=== PATIENT | female | born 1930 | race Caucasian/White ===

== ENCOUNTER 2016-03-28 12:49 | Outpatient (CLI) | payer MEDICARE, BC | END 2016-03-28 12:50 | disposition home or self-care (01) | DX: N63 Unspecified lump in breast (principal); Z85.3 Personal history of malignant neoplasm of breast; Z90.11 Acquired absence of right breast and nipple ==

== ENCOUNTER 2016-04-27 | Outpatient (CLI) | payer MEDICARE, BC | END 2016-04-27 03:27 | disposition critical access hospital (66) | CPT/HCPCS: A0425; A0427 ==

== ENCOUNTER 2016-04-27 04:23 | Emergency (ER) | payer MEDICARE, BC ==
[2016-04-27] MEDS ORDERED: SODIUM CHLORIDE 0.9% 1,000 ML IV ONE (04:30)
[2016-04-27] MEDS ORDERED: MECLIZINE 12.5 MG TABLET PO STA (04:30)
[2016-04-27] MEDS ORDERED: MECLIZINE 12.5 MG TABLET PO ONE (04:33)
[2016-04-27] MEDS ORDERED: ONDANSETRON ODT 4 MG Prepack 2 TL PRN (06:05)
[2016-04-27] MEDS ORDERED: ONDANSETRON ODT 4 MG Prepack 2 TL ONE (06:11)
== END 2016-04-27 06:39 | disposition home or self-care (01) ==
DX: R42 Dizziness and giddiness (principal); R11.2 Nausea with vomiting, unspecified; R19.7 Diarrhea, unspecified; S50.311A Abrasion of right elbow, initial encounter; X58.XXXA Exposure to other specified factors, initial encounter; J44.9 Chronic obstructive pulmonary disease, unspecified; Z85.828 Personal history of other malignant neoplasm of skin

== ENCOUNTER 2017-02-19 14:34 | Outpatient (CLI) | payer MEDICARE, BC | END 2017-02-19 14:35 | disposition critical access hospital (66) | LOC: EMS 14:34 | PROVIDERS: ATTEND Surgery | DX: R53.1 Weakness (principal) | CPT/HCPCS: A0425; A0429 ==

== ENCOUNTER 2017-02-19 15:32 | Emergency (ER) | payer MEDICARE, BC ==
[2017-02-19] MEDS ORDERED: MECLIZINE 12.5 MG TABLET PO STA (15:52)
[2017-02-19] MEDS ORDERED: SODIUM CHLORIDE 0.9% 1,000 ML IV ONE (15:52)
[2017-02-19] MEDS ORDERED: ONDANSETRON 4 MG/2 ML VIAL IVP STA (15:52)
[2017-02-19] MEDS ORDERED: diazePAM INJ 5 MG/ML SYRINGE IVP STA (15:52)
[2017-02-19 16:36] LABS: BASOPHILS # (AUTO) 0.1 10^3/uL (0.0-0.1); BASOPHILS % (AUTO) 1.1 %; EOSINOPHILS % (AUTO) 0.1 %; HCT - HEMATOCRIT 46.7 % (37.0-47.0); HGB - HEMOGLOBIN 15.4 g/dL (12.0-16.0); LYMPHOCYTES # (AUTO) 1.1 10^3/uL (1.5-3.5); LYMPHOCYTES % (AUTO) 15.1 %; MEAN CORPUSCULAR HEMOGLOBIN 32.5 pg (27.0-31.0); MEAN CORPUSCULAR VOLUME 98.5 fL (81.0-99.0); MONOCYTES # (AUTO) 0.2 10^3/uL (0.0-1.0); MONOCYTES % (AUTO) 2.2 %; NEUTROPHILS # (AUTO) 5.9 10^3/uL (1.5-6.6); NEUTROPHILS % (AUTO) 81.5 %; RED BLOOD COUNT 4.75 10^6/uL (4.20-5.40); RED CELL DISTRIBUTION WIDTH 13.8 % (12.0-15.0); UNCORRECTED WHITE BLOOD COUNT 7.3 x10^3/uL; WHITE BLOOD COUNT 7.3 x10^3/uL (4.8-10.8)
[2017-02-19 16:39] LABS: ALBUMIN/GLOBULIN RATIO 1.9 (1.0-2.2); BILIRUBIN,TOTAL 0.9 mg/dL (0.2-1.0); CALCIUM 9.1 mg/dL (8.5-10.3); CREATININE 0.4 mg/dL (0.4-1.0); POTASSIUM 3.4 mmol/L (3.5-5.0); TOTAL PROTEIN 6.4 g/dL (6.7-8.2)
--- NOTE | 2017-02-19 17:06 | ED Physician Documentation ---
History of Present Illness - Stated complaint Stated Complaint: SYNCOPE - Chief complaint Chief Complaint: General - History obtained from History obtained from: Patient, Family, EMS - Additonal information Additional information: Patient is an 86 year old female with a history of vertigo who is presenting to the emergency department for vertigo, nausea and vomiting. patient states that about 10 am today she was reading in bed and when she moved the room started spinning. patient was able to only sit in certain positions, other positions made her nauseated with movement. Review of Systems Constitutional: denies: Fever, Chills Eyes: denies: Photophobia Nose: reports: Reviewed and negative Throat: reports: Reviewed and negative Cardiac: denies: Chest pain / pressure, Palpitations Respiratory: denies: Dyspnea, Cough, Wheezing GI: reports: Nausea, Vomiting, Diarrhea : denies: Dysuria, Frequency Neurologic: reports: Other (vertigo). 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 Musculoskeletal: Osteoarthritis Derm: Other - Past Surgical History Past Surgical History: Yes General: Appendectomy, Splenectomy, Colonoscopy /VENTILATION EQUIPMENT TENDER: Mastectomy Derm: Skin cancer surgery - Present Medications Home Medications: Ambulatory Orders Medication Instructions Recorded Confirmed Ascorbic Acid [C-1000] 1,000 mg PO DAILY 02/26/15 02/26/15 Beta-Carotene(A)-Vits C and E 02/26/15 02/26/15 [E-400 C-500 & Beta Carotene] Calcium Carb/Magnesium Ox,Carb 02/26/15 02/26/15 [Fred-Mag Tablet Chewable] Glucosamine/Methylsulfonylmeth 120 gm TP DAILY 02/26/15 02/19/17 [MSM with Glucosamine Creme] Lysine HCl [l-Lysine] 1,000 mg PO DAILY 02/26/15 02/19/17 [place]-3 Fatty Acids [Fish Oil] 300 mg PO DAILY 02/26/15 02/19/17 Potassium 02/26/15 02/26/15 Ubidecarenone [Co Q-10] 50 mg PO DAILY 02/26/15 02/19/17 Vitamin B Complex [B-50 Complex] 1 each PO DAILY 02/26/15 02/19/17 Meclizine HCl 25 mg PO Q6HR #15 tab.chew 02/19/17 Ondansetron Odt [Zofran Odt] 4 mg TL Q6H PRN #20 tablet 02/19/17 - Allergies Allergies/Adverse Reactions: Allergies Allergy/AdvReac Type Severity Reaction Status Date / Time acetaminophen Allergy Unknown Verified 02/19/17 16:33 [From Darvocet-N] cephalexin monohydrate * Allergy Unknown Verified 02/19/17 16:33 [From Keflex] diazepam Allergy Unknown Verified 02/19/17 16:33 erythromycin base Allergy Unknown Verified 02/19/17 16:33 Penicillins Allergy Unknown Verified 02/19/17 16:33 petrolatum,white Allergy Unknown Verified 02/19/17 16:33 [From Petroleum Jelly] prednisone Allergy Unknown Verified 02/19/17 16:33 propoxyphene napsylate * Allergy Unknown Verified 02/19/17 16:33 [From Darvocet-N] Sulfa (Sulfonamide Allergy Unknown Verified 02/19/17 16:33 Antibiotics) fluoroquinolones Allergy Unknown Uncoded 04/27/16 04:29 metals Allergy Unknown Uncoded 04/27/16 04:29 vicryl sutures Allergy Unknown Uncoded 04/27/16 04:29 - Social History Does the pt smoke?: No Smoking Status: Never smoker Does the pt drink ETOH?: No Does the pt have substance abuse?: No - Immunizations Immunizations are current?: Yes - POLST Patient has POLST: No PD ED PE NORMAL - Vitals Vital signs reviewed: Yes - General General: Alert and oriented X 3, No acute distress - HEENT HEENT: Atraumatic, PERRL, Moist mucous membranes - Neck Neck: Supple, no meningeal sign - Cardiac Cardiac: RRR, No murmur - Respiratory Respiratory: No respiratory distress, Clear bilaterally - Abdomen Abdomen: Soft, Non tender, Non distended - Derm Derm: Normal color, Warm and dry, No rash - Extremities Extremities: No deformity, Normal ROM s pain, No edema - Neuro Neuro: Alert and oriented X 3, No motor deficit, No sensory deficit, Normal speech PD ED PE EXPANDED - HEENT HEENT: Other (mild nystagmus with movement) Results - Vitals Vitals: Vital Signs - 24 hr 02/19/17 15:37 Temperature 36.5 C Heart Rate 65 Respiratory 18 Rate Blood Pressure 146/79 H O2 Saturation 98 Oxygen O2 Source Room air - EKG (time done) 1624 Rate: Rate (enter#) (63) Rhythm: NSR [place]: Normal Intervals: Normal IA QRS: Normal Ischemia: Normal ST segments Compare to prior EKG: Old EKG unavailable - Labs Labs: Laboratory Tests 02/19/17 02/19/17 02/19/17 14:16 14:16 14:16 WBC 7.3 RBC 4.75 Hgb 15.4 Hct 46.7 MCV 98.5 MCH 32.5 H MCHC 33.0 RDW 13.8 Plt Count 248 MPV 8.0 Neut # 5.9 Lymph # 1.1 L [place] # 0.2 Eos # 0.0 Baso # 0.1 Absolute Nucleated RBC 0.00 Nucleated RBC % 0.0 Sodium 138 Potassium 3.4 L Chloride 103 Carbon Dioxide 24 Anion Gap 11.0 BUN 11 Creatinine 0.4 Estimated GFR (MDRD) 152 Glucose 123 H Calcium 9.1 Total Bilirubin 0.9 AST 25 ALT 15 Alkaline Phosphatase 67 Troponin I < 0.04 Total Protein 6.4 L Albumin 4.2 Globulin 2.2 Albumin/Globulin Ratio 1.9 Lipase 70 H PD MEDICAL DECISION MAKING - ED course Complexity details: reviewed old records, reviewed results, re-evaluated patient , considered differential, d/w patient, d/w family ED course: Patient was seen and examined at bedside. IV access was gained and labs were drawn. Patient was treated with fluids, zofran and meclizine. after an episode of vomiting patient stated that she had diaphragm pain and was ekg was performed. Patient's vertigo was made worse with movement, and was better when she remained still. Upon re-evaluation patient stated that she was feeling much better and symptoms had resolved. Patient was given detailed discharge and return instructions and was stable for discharge with outpatient follow up. Departure - Departure Disposition: 01 Home, Self Care Clinical Impression: Benign positional vertigo Condition: Good Instructions: ED BPV Vertigo Follow-Up: Hallie Nunez ARNP [Primary Care Provider] - Within 3 Days Prescriptions: Meclizine HCl 25 mg PO Q6HR #15 tab.chew Ondansetron Odt [Zofran Odt] 4 mg TL Q6H PRN #20 tablet PRN Reason: Nausea / Vomiting Comments: Your symptoms today are being caused by benign positional vertigo. You should make sure that you stay well hydrated and try not to move too quickly. You should take the meclizine as needed for the vertigo and can take zofran as needed for nausea. You should follow up with your doctor for further care. You may return to the emergency department at any time for new, worsening or uncontrollable symptoms.
[2017-02-19 18:49] VITALS: BP 136/78
== END 2017-02-19 17:30 | disposition home or self-care (01) ==
LOC: EDUNIT# → ED 15:32
DX: H81.10 Benign paroxysmal vertigo, unspecified ear (principal); J44.9 Chronic obstructive pulmonary disease, unspecified
CPT/HCPCS: 36415; 80053; 83690; 84484; 85025; 93005; 96361; 96374; 99283; 99284; A9270

== ENCOUNTER 2017-07-10 17:39 | Emergency (ER) | payer MEDICARE, BC ==
--- NOTE | 2017-07-10 18:00 | ED Physician Documentation ---
History of Present Illness - Stated complaint Stated Complaint: GLF - Chief complaint Chief Complaint: General - History obtained from History obtained from: Patient, Family - History of Present Illness Timing: Other (She tripped and fell down some stairs and was laying in an awkward position for about an hour. The major sites of pain of the left wrist and left posterior ribs. No head or neck injury. She is not anticoagulated. 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 Musculoskeletal: Osteoarthritis Derm: Other - Past Surgical History Past Surgical History: Yes General: Appendectomy, Splenectomy, Colonoscopy /MORALE OFFICER: Mastectomy Derm: Skin cancer surgery - Present Medications Home Medications: Ambulatory Orders Medication Instructions Recorded Confirmed Ascorbic Acid [C-1000] 1,000 mg PO DAILY 02/26/15 02/26/15 Beta-Carotene(A)-Vits C and E 02/26/15 02/26/15 [E-400 C-500 & Beta Carotene] Calcium Carb/Magnesium Ox,Carb 02/26/15 02/26/15 [Fred-Mag Tablet Chewable] Glucosamine/Methylsulfonylmeth 120 gm TP DAILY 02/26/15 02/19/17 [MSM with Glucosamine Creme] Lysine HCl [l-Lysine] 1,000 mg PO DAILY 02/26/15 02/19/17 [place]-3 Fatty Acids [Fish Oil] 300 mg PO DAILY 02/26/15 02/19/17 Potassium 02/26/15 02/26/15 Ubidecarenone [Co Q-10] 50 mg PO DAILY 02/26/15 02/19/17 Vitamin B Complex [B-50 Complex] 1 each PO DAILY 02/26/15 02/19/17 Meclizine HCl 25 mg PO Q6HR #15 tab.chew 02/19/17 Ondansetron Odt [Zofran Odt] 4 mg TL Q6H PRN #20 tablet 02/19/17 oxyCODONE [Roxicodone] 0.5 tab PO Q6H PRN #15 tablet 07/10/17 - Allergies Allergies/Adverse Reactions: Allergies Allergy/AdvReac Type Severity Reaction Status Date / Time acetaminophen Allergy Unknown Verified 07/10/17 17:55 [From Darvocet-N] cephalexin monohydrate * Allergy Unknown Verified 07/10/17 17:55 [From Keflex] diazepam Allergy Unknown Verified 07/10/17 17:55 erythromycin base Allergy Unknown Verified 07/10/17 17:55 Penicillins Allergy Unknown Verified 07/10/17 17:55 petrolatum,white Allergy Unknown Verified 07/10/17 17:55 [From Petroleum Jelly] prednisone Allergy Unknown Verified 07/10/17 17:55 propoxyphene napsylate * Allergy Unknown Verified 07/10/17 17:55 [From Darvocet-N] Sulfa (Sulfonamide Allergy Unknown Verified 07/10/17 17:55 Antibiotics) fluoroquinolones Allergy Unknown Uncoded 04/27/16 04:29 metals Allergy Unknown Uncoded 04/27/16 04:29 vicryl sutures Allergy Unknown Uncoded 04/27/16 04:29 - Social History Does the pt smoke?: No Smoking Status: Never smoker Does the pt drink ETOH?: No Does the pt have substance abuse?: No - Immunizations Immunizations are current?: Yes - POLST Patient has POLST: No PD ED PE NORMAL - Vitals Vital signs reviewed: Yes - General General: Alert and oriented X 3, No acute distress - HEENT HEENT: PERRL, EOMI - Neck Neck: Supple, no meningeal sign, No bony TTP - Abdomen Abdomen: Non tender - Back Back: No spinal TTP, Other (She is tenderness to the low ribs in the posterior axillary line on the left side without deformity. No flank tenderness.) - Extremities Extremities: Other (She is quite tender to the left distal radius but not the snuffbox. Limited range of motion in flexion and extension due to pain but normal neurovascular status in the hand there is an abrasion over the left elbow but no underlying tenderness or limited range of motion. She is up-to- date on tetanus.) - Neuro Neuro: Alert and oriented X 3, Normal speech Eye Opening: Spontaneous Motor: Obeys Commands Verbal: Oriented GCS Score: 15 - Psych Psych: Normal mood, Normal affect Results - Vitals Vitals: Vital Signs - 24 hr 07/10/17 17:43 Temperature 36.6 C Heart Rate 67 Respiratory 20 Rate Blood Pressure 145/73 H O2 Saturation 92 Oxygen O2 Source Room air - Rads (name of study) L ribs Radiology: EMP read contemporaneously (There is a minimally displaced left 10th rib fracture without pneumothorax) L wrist Radiology: EMP read contemporaneously (Minimally displaced comminuted intra- articular fracture of the distal radius extending to the radiocarpal joint with a small triquetral avulsion fracture.) Procedures - Splint (location) L wrist Splint applied by: Tech Type of splint: Fiberglass, Short arm, Volar cock up Other: Patient tolerated well, No complications, Neurovascular intact Departure - Departure Disposition: 01 Home, Self Care Clinical Impression: Fracture of left distal radius Qualifiers: Encounter type: initial encounter Fracture type: closed Fracture morphology: other intra-articular Qualified Code(s): S52.572A - Other intraarticular fracture of lower end of left radius, initial encounter for closed fracture Fracture of triquetrum of left wrist Qualifiers: Encounter type: initial encounter Fracture type: closed Fracture alignment: nondisplaced Qualified Code(s): S62.115A - Nondisplaced fracture of triquetrum [ cuneiform] bone, left wrist, initial encounter for closed fracture Left rib fracture Qualifiers: Encounter type: initial encounter Rib fracture type: single rib Fracture type: closed Qualified Code(s): S22.32XA - Fracture of one rib, left side, initial encounter for closed fracture Condition: Good Record reviewed to determine appropriate education?: Yes Instructions: ED Fx Rib, ED Fx Forearm Radius Ulna No Redu Requ Follow-Up: [facility] [Provider Group] - Within 1 week Prescriptions: oxyCODONE [Roxicodone] 0.5 tab PO Q6H PRN #15 tablet PRN Reason: Pain Comments: Follow-up with the orthopedic surgeon within the week, call tomorrow for appointment. Return if worse. Keep the splint on and dry until you follow-up. Practice deep breathing. Do not drink or drive while taking narcotic pain medication. Note that many narcotic pain relievers also contain Tylenol/acetaminophen. Please ensure that your total dose of acetaminophen from all sources does not exceed 3 g (3000 mg) per day. You may get constipated while on this medication. Take a stool softener such as Colace twice a day while you are on it. Also add an [id number] laxative such as senna or MiraLAX on any day that you do not have a bowel movement. If you received a narcotic pain medication or sedative while in the emergency department, do not drive for the next 24 hours.
[2017-07-10] MEDS ORDERED: BACITRACIN OINT TOP ONE (18:14)
--- NOTE | 2017-07-10 19:05 | XRAY Report ---
EXAM: LEFT WRIST RADIOGRAPHY EXAM DATE: 07/10/2017 06:01 PM. CLINICAL HISTORY: Fall, wrist and rib injury. COMPARISON: None. TECHNIQUE: 3 views. FINDINGS: Bones: There is a comminuted minimally displaced fracture of the distal radius with intra-articular e xtension to the radial carpal joint. Greatest displacement is of the posterior lip of the radius on l ateral view, less than one cortical width. There is also a small posterior triquetral avulsion fracture demonstrated on the lateral view. Joints: No malalignment. Subchondral cystic changes and sclerosis present within the ulnar aspect of the lunate, likely degenerative. At least mild degenerative change present at the first interphalange al joint. Soft Tissues: Soft tissue swelling present about the wrist. IMPRESSION: 1. Minimally displaced comminuted intra-articular fracture of the distal radius extending to the radi ocarpal joint. No dislocation/subluxation. 2. Small triquetral avulsion fracture. [facility] Referring Provider Line: [phone] SITE ID: [id number]
--- NOTE | 2017-07-10 19:15 | XRAY Report ---
EXAM: LEFT RIB RADIOGRAPHY EXAM DATE: 07/10/2017 06:01 PM. CLINICAL HISTORY: Fall, wrist and rib injury. COMPARISON: Chest radiograph 02/27/2016. TECHNIQUE: 1 view of the chest and 2 views of the ribs. FINDINGS: Bones: There is a minimally displaced fracture of the posterolateral left 10th rib. Lungs: There is mild diffuse interstitial prominence, similar to prior exam. No focal consolidation. No significant pleural effusion. No pneumothorax. Mediastinum: Heart and mediastinal contours are unremarkable. Other: None. IMPRESSION: Minimally displaced left 10th rib fracture without pneumothorax. [facility] Referring Provider Line: [phone] SITE ID: [id number]
[2017-07-10 19:43] VITALS: BP 158/64
== END 2017-07-10 19:38 | disposition home or self-care (01) ==
LOC: ED 17:39
DX: S52.572A Other intraarticular fracture of lower end of left radius, initial encounter for closed fracture (principal); S62.115A Nondisplaced fracture of triquetrum [cuneiform] bone, left wrist, initial encounter for closed fracture; S22.32XA Fracture of one rib, left side, initial encounter for closed fracture; W10.9XXA Fall (on) (from) unspecified stairs and steps, initial encounter; J44.9 Chronic obstructive pulmonary disease, unspecified
CPT/HCPCS: 29125; 71101; 73110; 99283; 99284; A9270

== ENCOUNTER 2019-05-14 16:08 | Outpatient (CLI) | payer MEDICARE, BC | END 2019-05-14 23:59 | disposition EMS.NT | LOC: EMS 16:08 | PROVIDERS: ATTEND Surgery | DX: R41.0 Disorientation, unspecified (principal) ==

== ENCOUNTER 2019-12-26 12:47 | Outpatient (CLI) | payer MEDICARE, BC ==
--- NOTE | 2019-12-29 12:14 | MRI Report ---
PROCEDURE: Brain W/O INDICATIONS: IMPAIRED COGNITION TECHNIQUE: Noncontrast axial T1 spin echo, axial T2 fast spin echo, sagittal and axial FLAIR, coronal T2 fast sp in echo, axial gradient echo, axial diffusion and ADC through the brain. COMPARISON: None. FINDINGS: Image quality: Excellent. CSF Spaces: Basal cisterns are patent. No extra-axial fluid collections. Ventricles are normal in size and shape. Brain: No intracranial masses or hemorrhage. Power/white matter interface is normal. Prominent T2 hy perintensities are present within the remi. Diffusion-weighted images demonstrate no acute ischemic i nsult. No chronic ischemic insults. Normal intravascular flow voids are present. Skull and face: Calvarium has normal marrow signal. Orbits appear normal. Sinuses: Sinuses and mastoids are clear. IMPRESSION: 1. No acute intracranial process. 2. Moderate to severe atrophy and chronic microvascular ischemic changes. In addition, prominent hyp erintensities are present within the remi likely related to microvascular ischemia. Reviewed by: Jannette Bateman MD on 12/28/2019 8:07 AM [facility] Approved by: Jannette Bateman MD on 12/28/2019 8:07 AM PST Station ID: [id number]
== END 2019-12-26 12:48 | disposition home or self-care (01) ==
LOC: DI 12:47
PROVIDERS: ATTEND Registered Nurse
DX: R41.89 Other symptoms and signs involving cognitive functions and awareness (principal); G31.9 Degenerative disease of nervous system, unspecified
CPT/HCPCS: 70551

== ENCOUNTER 2020-03-04 03:40 | Outpatient (CLI) | payer MEDICARE, BC ==
--- OUTSIDE RECORDS SUMMARY | 2020-03-09 01:25 | EXTERNAL MEDICAL SUMMARY RPT | Continuity of Care Document ---
:1930 Demographics Phone Unavailable Preferred Language Unknown Marital Status Unknown Oriental Orthodox Affiliation Unknown Race Unknown Ethnic Group Unknown Author Organization [place] Address [address] [place] [phone] Phone Care Team Providers Name Role Phone Hallie Nunez Unavailable Unavailable TEMO HUERTA Unavailable Unavailable Veronica Kennedy Unavailable Unavailable Problems date description facility 2014-05-06 09:32 HYPERLIPIDEMIA NEC/NOS [facility] 2014-05-06 09:32 ARTHROPATHY NOS-UNSPEC [facility] 2014-07-05 09:44 HYPERLIPIDEMIA NEC/NOS [facility] 2014-07-05 09:44 OTH MALAISE FATIGUE [facility] 2014-07-08 11:14 HYPERLIPIDEMIA NEC/NOS [facility] 2014-07-08 11:14 LOC OSTEOARTH NOS-L/LEG [facility] 2014-09-20 12:48 SCREEN MAL, OTHER SITES [facility] 2014-09-24 15:01 [facility]NOL[facility] SK[facility] 2014-09-24 15:01 ARTHROPATHY NOS-UNSPEC [facility] 2015-02-26 10:31 DEHYDRATION [facility] 2015-02-26 10:31 SYNCOPE AND COLLAPSE [facility] ical [place] 2016-03-28 12:49 UNSPECIFIED LUMP IN BREAST [facility] 2016-03-28 12:49 PERSONAL HISTORY OF MALIGNANT [facility] NEOPLASM OF BREAST 2016-03-28 12:49 ACQUIRED ABSENCE OF RIGHT BREAST [facility] AND NIPPLE 2016-04-27 04:23 CHRONIC OBSTRUCTIVE PULMONARY [facility] DISEASE, UNSPECIFIED 2016-04-27 04:23 NAUSEA WITH VOMITING, UNSPECIFIED [facility] 2016-04-27 04:23 DIARRHEA, UNSPECIFIED [facility] dical [place] 2016-04-27 04:23 DIZZINESS AND GIDDINESS [facility] 2016-04-27 04:23 ABRASION OF RIGHT ELBOW, INITIAL [facility] ENCOUNTER 2016-04-27 04:23 EXPOSURE TO OTHER SPECIFIED [facility] FACTORS, INITIAL ENCOUNTER 2016-04-27 04:23 PERSONAL HISTORY OF OTHER [facility] MALIGNANT NEOPLASM OF SKIN 2017-02-19 15:32 BENIGN PAROXYSMAL VERTIGO, [facility] UNSPECIFIED EAR 2017-02-19 15:32 CHRONIC OBSTRUCTIVE PULMONARY [facility] DISEASE, UNSPECIFIED 2017-02-19 15:32 DIZZINESS AND GIDDINESS [facility] 2017-07-10 17:39 CHRONIC OBSTRUCTIVE PULMONARY [facility] DISEASE, UNSPECIFIED 2017-07-10 17:39 PAIN IN LEFT WRIST [facility] 2017-07-10 17:39 FRACTURE OF ONE RIB, LEFT SIDE, [facility] INIT FOR CLOS FX 2017-07-10 17:39 OTH INTARTIC FRACTURE OF LOWER END [facility] OF LEFT RADIUS, INIT 2017-07-10 17:39 NONDISP FX OF TRIQUETRUM BONE, [facility] LEFT WRIST, INIT FOR CLOS FX 2017-07-10 17:39 FALL (ON) (FROM) UNSPECIFIED [facility] STAIRS AND STEPS, INIT ENCNTR 2019-12-26 12:47 OTH SYMPTOMS AND SIGNS W COGNITIVE [facility] FUNCTIONS AND AWARENESS Allergies date description facility AMOXICILLIN-POT CLAVULANATE [facility] NO KNOWN ENVIRONMENTAL ALLERGIES [facility] PENICILLINS [facility] fluoroquinolones [facility] [place] metals [facility] [place] vicryl sutures [facility] [place] NO KNOWN ALLERGIES [facility] propoxyphene napsylate * [facility] cephalexin monohydrate * [facility] Penicillins [facility] Sulfa (Sulfonamide Antibiotics) [facility] diazepam [facility] acetaminophen [facility] [place] prednisone [facility] petrolatum,white [facility] erythromycin base [facility] flu[facility]quinolones [facility] metals [facility] vicryl sutures [facility] ECHINACEA [facility] ESTRONE [facility] GENTIAN TABITHA [facility] LIDOCAINE [facility] LISINOPRIL [facility] NITROFURANTOIN MACROCRYSTALLINE [facility] SIMVASTATIN [facility] NO KNOWN ALLERGIES [facility] propoxyphene napsylate * [facility] cephalexin monohydrate * [facility] Penicillins [facility] Sulfa (Sulfonamide Antibiotics) [facility] diazepam [facility] acetaminophen [facility] prednisone [facility] petrolatum,white [facility] erythromycin base [facility] NO ALLERGY INFORMATION AVAILABLE [facility] TETRACYCLINES [facility] LABETALOL [facility] Social History date description facility [id number]
== END 2020-03-04 03:41 | disposition critical access hospital (66) ==
LOC: EMS 03:40
PROVIDERS: ATTEND Surgery
DX: T14.90XA Injury, unspecified, initial encounter (principal); W19.XXXA Unspecified fall, initial encounter; Y93.89 Activity, other specified; Y92.009 Unspecified place in unspecified non-institutional (private) residence as the place of occurrence of the external cause
CPT/HCPCS: A0425; A0429

== ENCOUNTER 2020-03-04 04:03 | Emergency (ER) | payer MEDICARE, BC ==
--- NOTE | 2020-03-04 04:21 | ED Physician Documentation ---
History of Present Illness - Stated complaint Stated Complaint: GLF - Chief complaint Chief Complaint: Trauma Ch/Bk - History obtained from History obtained from: Patient, EMS - Additonal information Additional information: 89yF with pmh dementia on new medication (seroquel) X few days p/w mechanical fall from bed early this morning, unwitnessed but found shortly after, unknown HT. patient initially was denying pain anywhere but then began to have lower back pain prompting ems to bring her in. Denies head or neck pain. She does have aching pain to BL hips with movement. denies other injuries. 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 Derm: Skin cancer surgery - Present Medications Home Medications: Ambulatory Orders Medication Instructions Recorded Confirmed Ascorbic Acid [C-1000] 1,000 mg PO DAILY 02/26/15 02/26/15 Beta-Carotene(A)-Vits C and E 02/26/15 02/26/15 [E-400 C-500 & Beta Carotene] Calcium Carb/Magnesium Ox,Carb 02/26/15 02/26/15 [Fred-Mag Tablet Chewable] Glucosamine/Methylsulfonylmeth 120 gm TP DAILY 02/26/15 02/19/17 [MSM with Glucosamine Creme] Lysine HCl [l-Lysine] 1,000 mg PO DAILY 02/26/15 02/19/17 [place]-3 Fatty Acids [Fish Oil] 300 mg PO DAILY 02/26/15 02/19/17 Potassium 02/26/15 02/26/15 Ubidecarenone [Co Q-10] 50 mg PO DAILY 02/26/15 02/19/17 Vitamin B Complex [B-50 Complex] 1 each PO DAILY 02/26/15 02/19/17 Meclizine HCl 25 mg PO Q6HR #15 tab.chew 02/19/17 Ondansetron Odt [Zofran Odt] 4 mg TL Q6H PRN #20 tablet 02/19/17 oxyCODONE [Roxicodone] 0.5 tab PO Q6H PRN #15 tablet 07/10/17 Aspirin [Aspirin EC] 81 mg PO DAILY 03/04/20 03/04/20 Donepezil [Aricept] 5 mg PO DAILY 03/04/20 03/04/20 Escitalopram Oxalate [Lexapro] 5 mg PO DAILY 03/04/20 03/04/20 QUEtiapine [SEROquel] 25 mg PO DAILY 03/04/20 03/04/20 - Allergies Allergies/Adverse Reactions: Allergies Allergy/AdvReac Type Severity Reaction Status Date / Time acetaminophen Allergy Unknown Verified 03/04/20 04:08 [From Darvocet-N] cephalexin monohydrate * Allergy Unknown Verified 03/04/20 04:08 [From Keflex] diazepam Allergy Unknown Verified 03/04/20 04:08 erythromycin base Allergy Unknown Verified 03/04/20 04:08 Penicillins Allergy Unknown Verified 03/04/20 04:08 petrolatum,white Allergy Unknown Verified 03/04/20 04:08 [From Petroleum Jelly] prednisone Allergy Unknown Verified 03/04/20 04:08 propoxyphene napsylate * Allergy Unknown Verified 03/04/20 04:08 [From Darvocet-N] Sulfa (Sulfonamide Allergy Unknown Verified 03/04/20 04:08 Antibiotics) fluoroquinolones Allergy Unknown Uncoded 03/04/20 04:08 metals Allergy Unknown Uncoded 04/27/16 04:29 vicryl sutures Allergy Unknown Uncoded 04/27/16 04:29 - Social History Does the pt smoke?: No Smoking Status: Never smoker Does the pt drink ETOH?: No Does the pt have substance abuse?: No - Immunizations Immunizations are current?: Yes - POLST Patient has POLST: No PD ED PE NORMAL - Vitals Vital signs reviewed: Yes - General General: No acute distress, Other (Alert, conversant) - HEENT HEENT: Atraumatic, PERRL, EOMI, Moist mucous membranes, Pharynx benign, Other (no epistaxis or NSH) - Neck Neck: No bony TTP - Cardiac Cardiac: RRR - Respiratory Respiratory: No respiratory distress, Clear bilaterally - Abdomen Abdomen: Non tender, Non distended - Female Female : Deferred - Rectal Rectal: Deferred - Back Back: No spinal TTP, Other (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) - Derm Derm: Normal color - Extremities Extremities: Other (BL hips tender with ROM at the knee) - Neuro Neuro: drawstring knotter 2-12 intact, No motor deficit, No sensory deficit - Psych Psych: Normal mood, Normal affect Results - Vitals Vitals: Vital Signs - 24 hr 03/04/20 03/04/20 03/04/20 04:08 04:11 05:31 Temperature 36.7 C 36.7 C 36.7 C Heart Rate 71 71 66 Respiratory 18 18 18 Rate Blood Pressure 167/96 H 167/96 H 153/70 H O2 Saturation 97 97 95 Oxygen O2 Source Room air PD MEDICAL DECISION MAKING - ED course ED course: Elderly patient with dementia presents status post mechanical fall. Will obtain screening imaging and reassess. Imaging without acute traumatic injury at this time. patient in NAD, denying pain and declining pain medicine at present. will dc home with return precautions. pt will benefit from lift assistance from local FD. Follow up with PCP. Departure - Departure Clinical Impression: Fall from bed, Hip pain, bilateral Condition: Good Instructions: Falls Prevent Home Comments: You were seen in the emergency department for a fall. Your head CT, cervical spine CT, chest x-ray, and pelvic x-rays do not show any acute injury. Return to the emergency department if you have any new or worsening symptoms. Follow- up with your primary doctor. You can call 911 and ask for lift assistance from our local fire department. They can come to your home for free and help get your mother back into bed if you have issues.
[2020-03-04 06:15] VITALS: BP 150/70
--- NOTE | 2020-03-04 08:19 | CT Report ---
PROCEDURE: CERVICAL SPINE WO INDICATIONS: fall from standing TECHNIQUE: Noncontrast 3 mm thick sections acquired from the skull base to the T4 level. Sagittal and coronal r eformats were then constructed. For radiation dose reduction, the following was used: automated exp osure control, adjustment of mA and/or kV according to patient size. COMPARISON: None. FINDINGS: Image quality: Excellent. Bones: No fractures or dislocations. Visualized superior ribs are intact. Mid cervical moderate to moderately severe degenerative disc disease with slight retrolisthesis of C4 on C5. Soft tissues: Prevertebral soft tissues are normal in thickness. No paravertebral hematomas. No ap ical pneumothoraces. IMPRESSION: No acute trauma found. 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 Reviewed by: Anjel Yadav MD on 03/04/2020 8:18 AM PST Approved by: Anjel Yadav MD on 03/04/2020 8:18 AM [facility] Station ID: [id number]
--- NOTE | 2020-03-04 08:20 | CT Report ---
PROCEDURE: HEAD WO INDICATIONS: fall from bed TECHNIQUE: Noncontrast 4.5 mm thick angled axial sections acquired from the foramen magnum to the vertex. For r adiation dose reduction, the following was used: automated exposure control, adjustment of mA and/or kV according to patient size. COMPARISON: None. FINDINGS: Image quality: Excellent. CSF spaces: Basal cisterns are patent. No extra-axial fluid collections. Ventricles are normal in size and shape. Brain: No midline shift. No intracranial masses or hemorrhage. Power-white matter interface is norm al. Skull and face: Calvarium and visualized facial bones are intact, without suspicious lesions. Sinuses: Visualized sinuses and mastoids are clear. IMPRESSION: Moderate microvascular atherosclerotic change in the deep white matter of each hemispher e, no trauma found. Reviewed by: Anjel Yadav MD on 03/04/2020 8:19 AM PST Approved by: Anjel Yadav MD on 03/04/2020 8:19 AM [facility] Station ID: [id number]
--- NOTE | 2020-03-04 08:21 | XRAY Report ---
PROCEDURE: Chest 1 View X-Ray INDICATIONS: fall from standing TECHNIQUE: One view of the chest was acquired. COMPARISON: 07/10/2017 prior chest evaluation. FINDINGS: Surgical changes and devices: None. Lungs and pleura: No pleural effusions or pneumothorax. Lungs are clear except for mild interstitia l prominence. Mediastinum: Mediastinal contours appear normal. Heart size is normal. Bones and chest wall: No suspicious bony lesions. Overlying soft tissues appear unremarkable. IMPRESSION: Mild interstitial prominence, no trauma found. Reviewed by: Anjel Yadav MD on 03/04/2020 8:20 AM [facility] Approved by: Anjel Yadav MD on 03/04/2020 8:20 AM [facility] Station ID: [id number]
--- NOTE | 2020-03-04 08:23 | XRAY Report ---
PROCEDURE: Hips 3-4V BILAT INDICATIONS: hip pain s/p fall TECHNIQUE: Single view of pelvis and lateral view of each hip, 3 total images, are reviewed. COMPARISON: None FINDINGS: Bones: No fractures or dislocations. No suspicious bony lesions. The visualized pelvic ring appear s intact. Soft tissues: No suspicious soft tissue calcifications or masses. IMPRESSION: No trauma found. There is a slight degree of degenerative osteoarthritis at each hip. Reviewed by: Anjel Yadav MD on 03/04/2020 8:21 AM PST Approved by: Anjel Yadav MD on 03/04/2020 8:21 AM PST Station ID: [id number]
--- OUTSIDE RECORDS SUMMARY | 2020-03-09 01:25 | EXTERNAL MEDICAL SUMMARY RPT | Continuity of Care Document ---
:1930 Demographics Phone Unavailable Preferred Language Unknown Marital Status Unknown Church Affiliation Unknown Race Unknown Ethnic Group Unknown Author Organization [place] Address [address] [place] [phone] Phone Care Team Providers Name Role Phone Hallie Nunez Unavailable Unavailable TEMO HUERTA Unavailable Unavailable Veronica Kennedy Unavailable Unavailable Problems date description facility 2014-05-06 09:32 HYPERLIPIDEMIA NEC/NOS [facility] 2014-05-06 09:32 ARTHROPATHY NOS-UNSPEC [facility] 2014-07-05 09:44 HYPERLIPIDEMIA NEC/NOS [facility] 2014-07-05 09:44 OTH MALAISE FATIGUE [facility] 2014-07-08 11:14 HYPERLIPIDEMIA NEC/NOS [facility] 2014-07-08 11:14 LOC OSTEOARTH NOS-L/LEG [facility] 2014-09-20 12:48 SCREEN MAL, OTHER SITES [facility] 2014-09-24 15:01 [facility] BE[facility] MAGNOLIA SKIN [facility] 2014-09-24 15:01 ARTHROPATHY NOS-UNSPEC [facility] 2015-02-26 10:31 DEHYDRATION [facility] 2015-02-26 10:31 SYNCOPE AND COLLAPSE [facility] ical [place] 2016-03-28 12:49 UNSPECIFIED LUMP IN BREAST [facility] 2016-03-28 12:49 PERSONAL HISTORY OF MALIGNANT [facility] NEOPLASM OF BREAST 2016-03-28 12:49 ACQUIRED ABSENCE OF RIGHT BREAST [facility] AND NIPPLE 2016-04-27 04:23 CHRONIC OBSTRUCTIVE PULMONARY [facility] DISEASE, UNSPECIFIED 2016-04-27 04:23 NAUSEA WITH VOMITING, UNSPECIFIED [facility] 2016-04-27 04:23 DIARRHEA, UNSPECIFIED [facility] dical [place] 2016-04-27 04:23 DIZZINESS AND GIDDINESS [facility] 2016-04-27 04:23 ABRASION OF RIGHT ELBOW, INITIAL [facility] ENCOUNTER 2016-04-27 04:23 EXPOSURE TO OTHER SPECIFIED [facility] FACTORS, INITIAL ENCOUNTER 2016-04-27 04:23 PERSONAL HISTORY OF OTHER [facility] MALIGNANT NEOPLASM OF SKIN 2017-02-19 15:32 BENIGN PAROXYSMAL VERTIGO, [facility] UNSPECIFIED EAR 2017-02-19 15:32 CHRONIC OBSTRUCTIVE PULMONARY [facility] DISEASE, UNSPECIFIED 2017-02-19 15:32 DIZZINESS AND GIDDINESS [facility] 2017-07-10 17:39 CHRONIC OBSTRUCTIVE PULMONARY [facility] DISEASE, UNSPECIFIED 2017-07-10 17:39 PAIN IN LEFT WRIST [facility] 2017-07-10 17:39 FRACTURE OF ONE RIB, LEFT SIDE, [facility] INIT FOR CLOS FX 2017-07-10 17:39 OTH INTARTIC FRACTURE OF LOWER END [facility] OF LEFT RADIUS, INIT 2017-07-10 17:39 NONDISP FX OF TRIQUETRUM BONE, [facility] LEFT WRIST, INIT FOR CLOS FX 2017-07-10 17:39 FALL (ON) (FROM) UNSPECIFIED [facility] STAIRS AND STEPS, INIT ENCNTR 2019-12-26 12:47 OTH SYMPTOMS AND SIGNS W COGNITIVE [facility] FUNCTIONS AND AWARENESS Allergies date description facility AMOXICILLIN-POT CLAVULANATE [facility] NO KNOWN ENVIRONMENTAL ALLERGIES [facility] PENICILLINS [facility] fluoroquinolones [facility] [place] metals [facility] [place] vicryl sutures [facility] [place] NO KNOWN ALLERGIES [facility] Medic [facility] propoxyphene napsylate * [facility] cephalexin monohydrate * [facility] Penicillins [facility] Sulfa (Sulfonamide Antibiotics) [facility] diazepam [facility] acetaminophen [facility] [place] prednisone [facility] petrolatum,white [facility] erythromycin base [facility] fluoroquinolones [facility] metals [facility] vicryl sutures [facility] ECHINACEA [facility] ESTRONE [facility] GENTIAN TABITHA [facility] LIDOCAINE [facility] LISINOPRIL [facility] NITROFURANTOIN MACROCRYSTALLINE [facility] SIMVASTATIN [facility] NO KNOWN ALLERGIES [facility] propoxyphene napsylate * [facility] cephalexin monohydrate * [facility] Penicillins [facility] Sulfa (Sulfonamide Antibiotics) [facility] diazepam [facility] acetaminophen [facility] prednisone [facility] petrolatum,white [facility] erythromycin base [facility] NO ALLERGY INFORMATION AVAILABLE [facility] TETRACYCLINES [facility] LABETALOL [facility] Social History date description facility [id number]
== END 2020-03-04 06:14 | disposition home or self-care (01) ==
LOC: EDUNIT# → ED 04:03
DX: M25.551 Pain in right hip (principal); M25.552 Pain in left hip; M54.5 Low back pain; W06.XXXA Fall from bed, initial encounter; Y92.003 Bedroom of unspecified non-institutional (private) residence as the place of occurrence of the external cause; M50.321 Other cervical disc degeneration at C4-C5 level; F03.90 Unspecified dementia, unspecified severity, without behavioral disturbance, psychotic disturbance, mood disturbance, and anxiety; Z79.82 Long term (current) use of aspirin
CPT/HCPCS: 70450; 72125; 99284

== ENCOUNTER 2020-04-26 09:53 | Outpatient (CLI) | payer MEDICARE, BC | END 2020-04-26 09:54 | disposition critical access hospital (66) | LOC: EMS 09:53 | PROVIDERS: ATTEND Emergency Medicine | DX: M54.5 Low back pain (principal) | CPT/HCPCS: A0425; A0429 ==

== ENCOUNTER 2020-04-26 10:25 | Emergency (ER) | payer MEDICARE, BC ==
[2020-04-26] MEDS ORDERED: KETOROLAC 30 MG/ML VIAL IM STA (11:46)
--- NOTE | 2020-04-26 11:49 | ED Physician Documentation ---
History of Present Illness - Stated complaint Stated Complaint: GLF - Chief complaint Chief Complaint: Back Pain - History obtained from History obtained from: Family - History of Present Illness Timing: Prior to arrival - Additonal information Additional information: 89-year-old female presents the emergency department for evaluation of midline the lumbar and thoracic back pain after a ground-level fall that was unwitnessed this morning. By report of her daughter she was walking to the bathroom without a walker and the daughter heard a fall. She found her mother laying on her right side in the bathroom. EMS was summoned to the scene but at that time it felt that no further evaluation was warranted and patient was placed back to bed. This morning the daughter reports that secondary to pain her mom has been unable to get out of bed. Per daughter, her mom has been at baseline health and typically uses a walker but did not last night Past medical history includes dementia. No history of MD or strokes. Patient is not anticoagulated. Meds: Citalopram, daily 81 mg aspirin. Review of Systems Unable to obtain: Dementia Constitutional: reports: [place] [facility] PAST MEDICAL HISTORY - Past Medical History Past Medical History: Yes Respiratory: COPD Neuro: Dementia GI: Colon polyps DELI ASSOCIATE: Breast cancer Musculoskeletal: Osteoarthritis, Chronic back pain Derm: Other - Past Surgical History Past Surgical History: Yes General: Appendectomy, Splenectomy, Colonoscopy /DELI ASSOCIATE: Mastectomy Derm: Skin cancer surgery - Present Medications Home Medications: Ambulatory Orders Medication Instructions Recorded Confirmed Ascorbic Acid [C-1000] 1,000 mg PO DAILY 02/26/15 04/26/20 Beta-Carotene(A)-Vits C and E 02/26/15 02/26/15 [E-400 C-500 & Beta Carotene] Calcium Carb/Magnesium Ox,Carb 02/26/15 02/26/15 [Fred-Mag Tablet Chewable] Glucosamine/Methylsulfonylmeth 120 gm TP DAILY 02/26/15 02/19/17 [MSM with Glucosamine Creme] Lysine HCl [l-Lysine] 1,000 mg PO DAILY 02/26/15 02/19/17 Theresa-3 Fatty Acids [Fish Oil] 300 mg PO DAILY 02/26/15 02/19/17 Potassium 99 mg ORAL DAILY 02/26/15 02/26/15 Ubidecarenone [Co Q-10] 50 mg PO DAILY 02/26/15 02/19/17 Vitamin B Complex [B-50 Complex] 1 each PO DAILY 02/26/15 02/19/17 Meclizine HCl 25 mg PO Q6HR #15 tab.chew 02/19/17 04/26/20 Aspirin [Aspirin EC] 81 mg PO DAILY 03/04/20 04/26/20 Escitalopram Oxalate [Lexapro] 10 mg PO DAILY 03/04/20 04/26/20 - Allergies Allergies/Adverse Reactions: Allergies Allergy/AdvReac Type Severity Reaction Status Date / Time acetaminophen Allergy Unknown Verified 04/26/20 10:34 [From Darvocet-N] cephalexin monohydrate * Allergy Unknown Verified 04/26/20 10:34 [From Keflex] diazepam Allergy Unknown Verified 04/26/20 10:34 erythromycin base Allergy Unknown Verified 04/26/20 10:34 Penicillins Allergy Unknown Verified 04/26/20 10:34 petrolatum,white Allergy Unknown Verified 04/26/20 10:34 [From Petroleum Jelly] prednisone Allergy Unknown Verified 04/26/20 10:34 propoxyphene napsylate * Allergy Unknown Verified 04/26/20 10:34 [From Darvocet-N] Sulfa (Sulfonamide Allergy Unknown Verified 04/26/20 10:34 Antibiotics) fluoroquinolones Allergy Unknown Uncoded 03/04/20 04:08 metals Allergy Unknown Uncoded 04/27/16 04:29 vicryl sutures Allergy Unknown Uncoded 04/27/16 04:29 - Social History Does the pt smoke?: No Smoking Status: Never smoker Does the pt drink ETOH?: No Does the pt have substance abuse?: No - Immunizations Immunizations are current?: Yes - POLST Patient has POLST: No PD ED PE EXPANDED - General General: Alert, In Pain - Cardiac Cardiac: Regular Rate, Regular Rhythm, Radial strong equal, Pedal strong equal, Cap refill < 2 sec. No: Murmur Present - Respiratory Respiratory: Clear to ausultation jocy. No: Distress, Labored - Back Back: Vertebral tenderness, Soft tissue tenderness (Patient will not allow an evaluation of the back on her side secondary to pain.. Palpation of the midline thoracic and lumbar spine demonstrates tenderness with palpation. Patient able to raise both legs equally against strength. No loss of sensation.) - Derm Derm: Normal color, Warm and dry. No: Abrasion (s), Bruising - Neuro Neuro: Confused (as baseline secondary to dementia) - GCS Eye Opening: Spontaneous Motor: Obeys Commands Verbal: Confused Total: 14 Results - Vitals Vitals: Vital Signs - 24 hr 04/26/20 04/26/20 04/26/20 10:20 10:31 11:10 Temperature 36.7 C 36.8 C Heart Rate 67 71 64 Respiratory 14 16 19 Rate Blood Pressure 159/82 H 158/82 H 152/78 H O2 Saturation 93 93 93 04/26/20 04/26/20 04/26/20 13:52 14:41 18:16 Temperature Heart Rate 62 68 67 Respiratory 24 15 21 Rate Blood Pressure 167/78 H 143/77 H 157/83 H O2 Saturation 93 93 97 04/26/20 20:33 Temperature 36.3 C L Heart Rate 64 Respiratory 18 Rate Blood Pressure 155/69 H O2 Saturation 93 Oxygen O2 Source Room air - EKG (time done) 1149 Rate: Rate (enter#) (63) Rhythm: NSR [place]: Normal Intervals: Normal [place] QRS: Low voltage Ischemia: Normal ST segments Compare to prior EKG: Old EKG unavailable Computer interpretation: Agree with computer - Labs Labs: Laboratory Tests 04/26/20 04/26/20 12:05 12:05 WBC 11.2 H RBC 5.04 Hgb 15.9 Hct 48.1 H MCV 95.4 MCH 31.5 H MCHC 33.1 RDW 14.3 Plt Count 359 MPV 9.4 Neut # (Auto) 9.0 H Lymph # (Auto) 1.3 L [place] # (Auto) 0.7 Eos # (Auto) 0.0 Baso # (Auto) 0.1 Absolute Nucleated RBC 0.00 Nucleated RBC % 0.0 Sodium 141 Potassium 3.3 L Chloride 106 Carbon Dioxide 26 Anion Gap 9.0 BUN 10 Creatinine 0.4 Estimated GFR (MDRD) 151 Glucose 106 H Calcium 9.4 Total Bilirubin 1.1 H AST 21 ALT 17 Alkaline Phosphatase 74 Total Protein 6.7 Albumin 4.4 Globulin 2.3 Albumin/Globulin Ratio 1.9 Lipase 25 - Rads (name of study) lumbar CT Radiology: Final report received (Age-indeterminate endplate compression deformity at L1 with up to 30% loss of L1 vertebral body height. No significant retropulsion. Grade 1 anterior listhesis L3-L4. Degenerative disc bulge throughout lumbar spine) thoracic CT Radiology: Final report received (No acute thoracic spine fracture or dislocation.) PD MEDICAL DECISION MAKING - ED course Complexity details: reviewed results, re-evaluated patient, considered differential, d/w patient, d/w family, d/w technical solutions consultant ([facility]heng Neurosurgeon [facility]) ED course: 89-year-old female who has a history of dementia presents the emergency department with acute back pain after ground-level fall yesterday evening in which she fell walking into her bathroom without the walker. Due to dementia history is difficult to obtain from the patient but the daughter reports that she was unable to get her out of bed this morning. CT imaging of the thoracic and lumbar spine does show an L1 endplate fracture with about 30% loss of vertebral height. I did discuss the CT imaging findings with Dr. Patricio with neurosurgery at [facility]. He reports that the patient should be mobilized as tolerated with pain control. He would not recommend TLSO bracing. He does recommend follow-up with primary care provider as well as pos sible referral for evaluation to rehabilitation. Findings were discussed with the patient and her daughter. Despite toradol and then morphine pt was unable to get out of bed despite assistance from care staff. She was unable to ambulate. The daughter did not feel safe taking pt home tonight without more assistance at home. She is ordering a hospital bed. I have had the patient seen by social work. Patient may be able to go to [place] tomorrow for respite care, but it would not be possible today. The patient will unfortunately be boarded overnight in the ED while we await possible placement into [place]. Pt was rx 2 mg of haldo for some midl confusion later th evening, hoping to allow her adequate rest tonight Departure - Departure Clinical Impression: Closed L1 vertebral fracture Qualifiers: Encounter type: initial encounter Fracture morphology: unspecified fracture morphology Qualified Code(s): S32.019A - Unspecified fracture of first lumbar vertebra, initial encounter for closed fracture Dementia Qualifiers: Dementia type: unspecified type Dementia behavioral disturbance: with behavioral disturbance Qualified Code(s): F03.91 - Unspecified dementia with behavioral disturbance
[2020-04-26 12:12] LABS: BASOPHILS # (AUTO) 0.1 10^3/uL (0.0-0.1); BASOPHILS % (AUTO) 0.9 %; EOSINOPHILS % (AUTO) 0.1 %; HCT - HEMATOCRIT 48.1 % (37.0-47.0); HGB - HEMOGLOBIN 15.9 g/dL (12.0-16.0); LYMPHOCYTES # (AUTO) 1.3 10^3/uL (1.5-3.5); LYMPHOCYTES % (AUTO) 11.6 %; MEAN CORPUSCULAR HEMOGLOBIN 31.5 pg (27.0-31.0); MEAN CORPUSCULAR HGB CONC 33.1 g/dL (32.0-36.0); MEAN CORPUSCULAR VOLUME 95.4 fL (81.0-99.0); MEAN PLATELET VOLUME 9.4 fL (7.9-10.8); MONOCYTES # (AUTO) 0.7 10^3/uL (0.0-1.0); MONOCYTES % (AUTO) 6.4 %; NEUTROPHILS % (AUTO) 80.6 %; PLT - PLATELET COUNT 359 10^3/uL (130-450); RED BLOOD COUNT 5.04 10^6/uL (4.20-5.40); RED CELL DISTRIBUTION WIDTH 14.3 % (12.0-15.0); WHITE BLOOD COUNT 11.2 x10^3/uL (4.8-10.8)
[2020-04-26 12:26] LABS: ALBUMIN 4.4 g/dL (3.2-5.5); ALBUMIN/GLOBULIN RATIO 1.9 (1.0-2.2); BILIRUBIN,TOTAL 1.1 mg/dL (0.2-1.0); CALCIUM 9.4 mg/dL (8.5-10.3); CREATININE 0.4 mg/dL (0.4-1.0); POTASSIUM 3.3 mmol/L (3.5-5.0); TOTAL PROTEIN 6.7 g/dL (6.7-8.2)
--- NOTE | 2020-04-26 12:42 | CT Report ---
PROCEDURE: THORACIC SPINE WO INDICATIONS: GLF; midline back pain TECHNIQUE: Noncontrast 3 mm thick sections acquired through the region of interest in the thoracic spine. Sagit willie and coronal reformats were then constructed. For radiation dose reduction, the following was used : automated exposure control, adjustment of mA and/or kV according to patient size. COMPARISON: Chest and rib image dated 07/10/2017. FINDINGS: Image quality: Excellent. Bones: There is mild rightward curvature of lower thoracic spine. No spondylolisthesis. No acute tho racic vertebral body compression fractures. Superior endplate compression deformity at L1 level is se en incompletely evaluated on this study. Degenerative endplate changes and bilateral facet arthrosis is seen throughout thoracic spine. No significant central canal stenosis or bony foraminal stenosis. No suspicious sclerotic or lytic bony lesions. Central spinal canal is of normal overall caliber. Soft tissues: No paravertebral masses or hematomas. Visualized posteromedial lungs show dependent a telectasis and scarring posteriorly. No pneumothorax or pleural effusion. IMPRESSION: 1. No acute thoracic spine fracture or dislocation. 2. Degenerative disc disease throughout thoracic spine. 3. Mild superior endplate compression deformity of indeterminate age at L1 level, incompletely evalua odette on this study please refer to CT of lumbar spine report. Reviewed by: Kanu Reyes MD on 04/26/2020 12:40 PM PST Approved by: Kanu Reyes MD on 04/26/2020 12:40 PM PST Station ID: [id number]
--- NOTE | 2020-04-26 12:52 | CT Report ---
PROCEDURE: LUMBAR SPINE WO INDICATIONS: midline back pain after fall TECHNIQUE: Noncontrast 3 mm thick sections acquired from the T12 level to the sacrum. Sagittal and coronal refo rmats were constructed. For radiation dose reduction, the following was used: automated exposure co ntrol, adjustment of mA and/or kV according to patient size. COMPARISON: None. FINDINGS: Image quality: Excellent. Bones: There is mild straightening of normal lumbar lordosis. Grade 1 anterolisthesis of L3 on L4 is seen. Age indeterminant superior endplate compression deformity and cortical disruption at L1 level is seen with up to 30% loss of L1 vertebral body height. No significant retropulsion of the L1 director of leadership development ior wall is seen. There is suggestion of intraosseous hemangioma within L1 vertebral body. No other c ompression fracture is seen. Central spinal caliber is of normal overall caliber. No pars defects. T12-L1: Normal in appearance. L1-L2: Normal in appearance. L2-L3: Decreased intervertebral disc space and vacuum disc phenomenon is seen. Broad-based disc bu lge and bilateral facet arthrosis is seen causing [id number] central canal stenosis and left-si ded or neural foraminal narrowing. L3-L4: Degenerative endplate changes are seen with mildly decreased intervertebral disc space. Broa d-based disc bulge and bilateral facet arthrosis is seen with moderate central canal stenosis and mil d bilateral neural foraminal narrowing. L4-L5: There is vacuum disc phenomenon and near complete loss of intervertebral disc space with deg enerative endplate changes. Broad-based disc bulge and bilateral facet arthrosis is seen with moderat e central canal stenosis and bilateral neural foraminal narrowing. L5-S1: There is vacuum disc phenomenon and near complete loss of intervertebral disc space. Broad-b ased is bulge and bilateral facet arthrosis is seen with mild central canal stenosis and moderate jocy ateral neural foraminal narrowing. Soft tissues: No retroperitoneal masses or hematomas. Visualized aorta is normal in caliber. Mild t o moderate atherosclerotic calcifications throughout abdominal aorta is seen. IMPRESSION: 1. Age-indeterminate superior endplate compression deformity at L1 level with up to 30% loss of L1 ve rtebral body height. No significant retropulsion. Grade 1 anterolisthesis of L3 on L4. No other compr ession fracture or spondylolisthesis. 2. Degenerative disc bulge and bilateral facet arthrosis throughout lumbar spine as above. Reviewed by: Kanu Reyes MD on 04/26/2020 12:51 PM PST Approved by: Kanu Reyes MD on 04/26/2020 12:51 PM PST Station ID: [id number]
[2020-04-26] MEDS ORDERED: MORPHINE 2 MG/ML CARPUJECT IM STA (13:53)
[2020-04-26] MEDS ORDERED: HYDROcod/ACETAM 5/325 MG TABLET PO STA (15:15)
[2020-04-26] MEDS ORDERED: MORPHINE 2 MG/ML CARPUJECT IVP STA (16:55)
[2020-04-26] MEDS ORDERED: traMADol 50 MG TABLET PO STA (17:16)
[2020-04-26] MEDS ORDERED: haloperidoL 1 MG TABLET PO STA (20:34)
[2020-04-27] MEDS ORDERED: oxyCODONE 5 MG TABLET PO STA ×2 (03:26→09:25)
[2020-04-27] MEDS ORDERED: KETOROLAC 15 MG/ML VIAL IM STA (03:26)
[2020-04-27] MEDS ORDERED: haloperidoL 1 MG TABLET PO SCH (09:00)
--- NOTE | 2020-04-27 11:28 | ED Physician Documentation ---
ED Addendum - Addendum Addendum: 04/27/20 11:25 Patient seems to be doing better today. Pain well controlled with oxycodone. Ambulating in the emergency department and able to sit up and eat. Social work has been working with the patient and the family. Daughter is comfortable taking her home. Will prescribe pain medication for home. Patient counseled regarding signs and symptoms for which I believe and urgent re-evaluation would be necessary. Patient with good understanding of and agreement to plan and is c omfortable going home at this time This document was made in part using voice recognition software. While efforts are made to proofread this document, sound alike and grammatical errors may occur. Departure - Departure Disposition: Home, Self Care Clinical Impression: Closed L1 vertebral fracture Qualifiers: Encounter type: initial encounter Fracture morphology: unspecified fracture morphology Qualified Code(s): S32.019A - Unspecified fracture of first lumbar vertebra, initial encounter for closed fracture Dementia Qualifiers: Dementia type: unspecified type Dementia behavioral disturbance: with behavioral disturbance Qualified Code(s): F03.91 - Unspecified dementia with behavioral disturbance Condition: Good Instructions: ED Fx Comp Vertebral Follow-Up: Veronica Kennedy ARNP [Primary Care Provider] - Within 1 week Prescriptions: Oxycodone HCl [Roxicodone] 5 mg PO Q6H PRN #14 tablet PRN Reason: back pain Comments: You can use the medication as needed for pain. Return if you worsen. Follow-up with your doctor for further care. Do not drink alcohol or drive while on narcotic pain medicine. Note that many narcotic pain relievers also contain tylenol/acetaminophen. Please ensure that your total dose of acetaminophen from all sources does not exceed 3 grams (3000mg) per day. You may constipated on this medication, take a stool softener such as "Colace" twice a day while you are on it. Also recommend a muxf-zae-hihvqnj laxative such as senna or MiraLAX any day that you do not have a bowel movement. If you received narcotic pain medication in the emergency department, do not drive or operate machinery for the next 24 hours.
[2020-04-27 13:34] VITALS: BP 147/73
== END 2020-04-27 14:40 | disposition home or self-care (01) ==
LOC: EDUNIT# → ED 10:25
DX: S32.019A Unspecified fracture of first lumbar vertebra, initial encounter for closed fracture (principal); W18.30XA Fall on same level, unspecified, initial encounter; Y93.01 Activity, walking, marching and hiking; Y92.002 Bathroom of unspecified non-institutional (private) residence as the place of occurrence of the external cause; F03.91 Unspecified dementia, unspecified severity, with behavioral disturbance; M51.26 Other intervertebral disc displacement, lumbar region; M51.36 Other intervertebral disc degeneration, lumbar region; M51.34 Other intervertebral disc degeneration, thoracic region; Z79.82 Long term (current) use of aspirin
CPT/HCPCS: 36415; 72128; 72131; 80053; 83690; 85025; 93005; 96372; 99283; 99284; A9270

== ENCOUNTER 2020-04-29 16:37 | Outpatient (CLI) | payer MEDICARE, BC | END 2020-04-29 16:38 | disposition critical access hospital (66) | LOC: EMS 16:37 | DX: Z76.89 Persons encountering health services in other specified circumstances (principal) ==

== ENCOUNTER 2020-05-11 18:01 | Outpatient (CLI) | payer MEDICARE, BC | END 2020-05-11 18:02 | disposition critical access hospital (66) | LOC: EMS 18:01 | PROVIDERS: ATTEND Emergency Medicine | DX: M54.9 Dorsalgia, unspecified (principal); R41.0 Disorientation, unspecified | CPT/HCPCS: A0425; A0429 ==

== ENCOUNTER 2020-05-11 18:25 | Inpatient (IN) | payer MEDICARE, BC ==
--- NOTE | 2020-05-11 19:17 | ED Physician Documentation ---
History of Present Illness - Stated complaint Stated Complaint: FALLS - Chief complaint Chief Complaint: General - History obtained from History obtained from: Family (daughter (in ED at bedside)) - History of Present Illness Timing: How many weeks ago (2) - Additonal information Additional information: BIBA from [facility]. HPI from daughter; patient unable to contribute to HPI due to AMS/confusion. she was evaluated in this ED / for back pain after repeated falls; CT lumbar spine at that time demonstrated L1 fracture of indeterminate age. She was eventually discharged home to the daughter, subsequently was able to be placed in [facility]. Patient's daughter says that since she was placed at [facility] she has been hallucinating, has had poor PO intake, has not had a BM in 2 weeks, and has been unable to stand or ambulate due to severe pain. Daughter says patient has fallen six times over past week. 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 WRITER: Breast cancer Musculoskeletal: Osteoarthritis, Chronic back pain Derm: Other - Past Surgical History Past Surgical History: Yes General: Appendectomy, Splenectomy, Colonoscopy /BLOG WRITER: Mastectomy Derm: Skin cancer surgery - Present Medications Home Medications: Ambulatory Orders Medication Instructions Recorded Confirmed Acetaminophen [Tylenol] 325 mg PO BID 05/11/20 05/11/20 Cholecalciferol (Vitamin D3) 50 mcg PO DAILY 05/12/20 05/12/20 [Vitamin D3] Docusate Sodium 100Mg Capsule 100 mg PO BID 05/12/20 05/12/20 [Colace 100Mg Capsule] Escitalopram Oxalate 20 mg PO DAILY 05/12/20 05/12/20 Multivitamin 1 tab PO DAILY 05/12/20 05/12/20 Senna [Senokot] 8.6 mg PO BID PRN 05/12/20 05/12/20 oxyCODONE [Roxicodone] 5 mg PO Q6H PRN 05/12/20 05/12/20 - Allergies Allergies/Adverse Reactions: Allergies Allergy/AdvReac Type Severity Reaction Status Date / Time acetaminophen Allergy Unknown Verified 05/11/20 18:35 [From Darvocet-N] cephalexin monohydrate * Allergy Unknown Verified 05/11/20 18:35 [From Keflex] diazepam Allergy Unknown Verified 05/11/20 18:35 erythromycin base Allergy Unknown Verified 05/11/20 18:35 levofloxacin [From Levaquin] Allergy Unknown Verified 05/12/20 11:00 Penicillins Allergy Unknown Verified 05/11/20 18:35 petrolatum,white Allergy Unknown Verified 05/11/20 18:35 [From Petroleum Jelly] prednisone Allergy Unknown Verified 05/11/20 18:35 propoxyphene napsylate * Allergy Unknown Verified 05/11/20 18:35 [From Darvocet-N] Sulfa (Sulfonamide Allergy Unknown Verified 05/11/20 18:35 Antibiotics) vicryl sutures Allergy Unknown Uncoded 04/27/16 04:29 - Social History Does the pt smoke?: No Smoking Status: Never smoker Does the pt drink ETOH?: No Does the pt have substance abuse?: No - Immunizations Immunizations are current?: Yes - POLST Patient has POLST: No PD ED PE NORMAL - Vitals Vital signs reviewed: Yes - General General: No acute distress (NAD at rest but becomes agitated with movement involving her lower back (such as trying to sit patient up)), Well developed/nourished - HEENT HEENT: Atraumatic, PERRL - Neck Neck: No bony TTP - Cardiac Cardiac: RRR, No murmur - Respiratory Respiratory: No respiratory distress, Clear bilaterally - Abdomen Abdomen: Soft, Non tender, Non distended - Back Back: Other (appears to be uncomfortable with palpation of lumbar spine) - Derm Derm: Normal color, Warm and dry - Extremities Extremities: No deformity, No tenderness to palpate, Normal ROM s pain, No edema PD ED PE EXPANDED - Neuro Neuro: Confused, Disoriented (oriented to self only; inappropriate answers to questions) Results - Vitals Vitals: Vital Signs - 24 hr 05/11/20 05/11/20 05/11/20 18:35 19:26 21:25 Temperature 37.2 C Heart Rate 77 80 77 Respiratory 18 16 16 Rate Blood Pressure 158/71 H 128/100 H 173/81 H O2 Saturation 94 92 93 05/11/20 05/12/20 05/12/20 23:00 03:40 07:08 Temperature 36.5 C Heart Rate 81 60 68 Respiratory 18 18 Rate Blood Pressure 169/79 H 118/72 132/67 H O2 Saturation 96 96 96 05/12/20 05/12/20 05/12/20 08:00 08:10 08:30 Temperature Heart Rate 70 74 87 Respiratory 16 16 16 Rate Blood Pressure 128/92 H 139/77 H O2 Saturation 87 L 92 95 05/12/20 05/12/20 09:00 10:00 Temperature Heart Rate 82 71 Respiratory 16 16 Rate Blood Pressure 179/92 H 147/73 H O2 Saturation 95 94 Oxygen O2 Source Nasal cannula Oxygen Flow Rate 2 - Labs Labs: Laboratory Tests 05/11/20 05/11/20 05/11/20 19:15 19:15 20:44 WBC 9.9 RBC 5.07 Hgb 16.0 Hct 49.6 H MCV 97.8 MCH 31.6 H MCHC 32.3 RDW 15.0 Plt Count 288 MPV 10.7 Neut # (Auto) 7.4 H Lymph # (Auto) 1.3 L Piatt # (Auto) 1.0 Eos # (Auto) 0.0 Baso # (Auto) 0.1 Absolute Nucleated RBC 0.00 Nucleated RBC % 0.0 Sodium 141 Potassium 3.1 L Chloride 101 Carbon Dioxide 24 Anion Gap 16.0 H BUN 12 Creatinine 0.5 Estimated GFR (MDRD) 116 Glucose 93 Calcium 9.2 Total Bilirubin 1.6 H AST 25 ALT 21 Alkaline Phosphatase 85 Troponin I High Sens B-Natriuretic Peptide Total Protein 6.1 L Albumin 3.7 Globulin 2.4 Albumin/Globulin Ratio 1.5 Lipase 21 L Urine Color YELLOW Urine Clarity CLEAR Urine pH 6.0 Ur Specific Idamay >=1.030 H Urine Protein NEGATIVE Urine Glucose (UA) NEGATIVE Urine Ketones >=80 H Urine Occult Blood NEGATIVE Urine Nitrite NEGATIVE Urine Bilirubin NEGATIVE Urine Urobilinogen 2 H Ur Leukocyte Esterase NEGATIVE Ur Microscopic Review NOT INDICATED Urine Culture Comments NOT INDICATED Nasal Adenovirus (PCR) Nasal B. parapertussis DNA (PCR) Nasal Coronavir 229E PCR Nasal Coronavir HKU1 PCR Nasal Coronavir NL63 PCR Nasal Coronavir OC43 PCR Nasal Enterovir/Rhinovir PCR Nasal Influenza B PCR Nasal Influenza A PCR Nasal Parainfluen 1 PCR Nasal Parainfluen 2 PCR Nasal Parainfluen 3 PCR Nasal Parainfluen 4 PCR Nasal RSV (PCR) Nasal B.pertussis DNA PCR Nasal C.pneumoniae (PCR) Addi Human Metapneumo PCR Nasal M.pneumoniae (PCR) Nasal SARS-CoV-2 (PCR) 05/12/20 05/12/20 05/12/20 07:30 09:00 09:27 WBC RBC Hgb Hct MCV MCH MCHC RDW Plt Count MPV Neut # (Auto) Lymph # (Auto) Piatt # (Auto) Eos # (Auto) Baso # (Auto) Absolute Nucleated RBC Nucleated RBC % Sodium Potassium Chloride Carbon Dioxide Anion Gap BUN Creatinine Estimated GFR (MDRD) Glucose Calcium Total Bilirubin AST ALT Alkaline Phosphatase Troponin I High Sens 41.2 H* B-Natriuretic Peptide 195 H Total Protein Albumin Globulin Albumin/Globulin Ratio Lipase Urine Color Urine Clarity Urine pH Ur Specific Idamay Urine Protein Urine Glucose (UA) Urine Ketones Urine Occult Blood Urine Nitrite Urine Bilirubin Urine Urobilinogen Ur Leukocyte Esterase Ur Microscopic Review Urine Culture Comments Nasal Adenovirus (PCR) NOT DETECTED Nasal B. parapertussis DNA (PCR) NOT DETECTED Nasal Coronavir 229E PCR NOT DETECTED Nasal Coronavir HKU1 PCR NOT DETECTED Nasal Coronavir NL63 PCR NOT DETECTED Nasal Coronavir OC43 PCR NOT DETECTED Nasal Enterovir/Rhinovir PCR NOT DETECTED Nasal Influenza B PCR NOT DETECTED Nasal Influenza A PCR NOT DETECTED Nasal Parainfluen 1 PCR NOT DETECTED Nasal Parainfluen 2 PCR NOT DETECTED Nasal Parainfluen 3 PCR NOT DETECTED Nasal Parainfluen 4 PCR NOT DETECTED Nasal RSV (PCR) NOT DETECTED Nasal B.pertussis DNA PCR NOT DETECTED Nasal C.pneumoniae (PCR) NOT DETECTED Addi Human Metapneumo PCR NOT DETECTED Nasal M.pneumoniae (PCR) NOT DETECTED Nasal SARS-CoV-2 (PCR) NOT DETECTED - Rads (name of study) abdominal xrays Radiology: Prelim report reviewed, See rad report PD MEDICAL DECISION MAKING - ED course Complexity details: reviewed old records, reviewed results, re-evaluated patient, considered differential, d/w family ED course: patient's daughter does not want patient returning to [facility] but at this time there is not an indication for admission nor inpatient transfer. Plan is to hold patient in ED until social work can evaluate her in the morning. Patient was agitated early in stay even after PO tylenol and PO oxycodone. She is frequently calling out for help but very confused and thus unable to contribute to HPI/ROS. IV fluids ordered but patient removed her IV. She appears adequately hydrated and blood tests are reassuring. PO benadryl ordered but she would not take this. She was given 1 mg IM lorazepam and subsequently slept well for the remainder of my shift, signed out to Dr. Mcknight at end of my shift pending disposition Departure - Departure Disposition: [facility] DC/Xfer Condition: Serious Discharge Date/Time: 05/12/20 11:06
[2020-05-11 19:27] LABS: BASOPHILS # (AUTO) 0.1 10^3/uL (0.0-0.1); EOSINOPHILS % (AUTO) 0.4 %; HCT - HEMATOCRIT 49.6 % (37.0-47.0); LYMPHOCYTES # (AUTO) 1.3 10^3/uL (1.5-3.5); LYMPHOCYTES % (AUTO) 13.4 %; MEAN CORPUSCULAR HEMOGLOBIN 31.6 pg (27.0-31.0); MEAN CORPUSCULAR HGB CONC 32.3 g/dL (32.0-36.0); MEAN CORPUSCULAR VOLUME 97.8 fL (81.0-99.0); MEAN PLATELET VOLUME 10.7 fL (7.9-10.8); MONOCYTES % (AUTO) 9.9 %; NEUTROPHILS # (AUTO) 7.4 10^3/uL (1.5-6.6); NEUTROPHILS % (AUTO) 74.5 %; PLT - PLATELET COUNT 288 10^3/uL (130-450); RED BLOOD COUNT 5.07 10^6/uL (4.20-5.40); WHITE BLOOD COUNT 9.9 x10^3/uL (4.8-10.8)
[2020-05-11 19:34] LABS: ALBUMIN 3.7 g/dL (3.2-5.5); ALBUMIN/GLOBULIN RATIO 1.5 (1.0-2.2); BILIRUBIN,TOTAL 1.6 mg/dL (0.2-1.0); CALCIUM 9.2 mg/dL (8.5-10.3); CREATININE 0.5 mg/dL (0.4-1.0); POTASSIUM 3.1 mmol/L (3.5-5.0); TOTAL PROTEIN 6.1 g/dL (6.7-8.2)
[2020-05-11] MEDS ORDERED: oxyCODONE 5 MG TABLET PO STA (20:31)
[2020-05-11] MEDS ORDERED: ACETAMINOPHEN 325 MG TABLET PO STA (20:31)
[2020-05-11] MEDS ORDERED: SODIUM CHLORIDE 0.9% 1,000 ML IV STA (20:32)
[2020-05-11 20:53] LABS: GLUCOSE, URINE (UA) NEGATIVE (NEGATIVE); KETONES,URINE (UA) >=80 mg/dL (NEGATIVE); LEUKOCYTE ESTERASE, URINE NEGATIVE (NEGATIVE); NITRITE,URINE NEGATIVE (NEGATIVE); OCCULT BLOOD,URINE NEGATIVE (NEGATIVE); PROTEIN,URINE NEGATIVE (NEGATIVE); UROBILINOGEN,URINE 2 E.U./dL (NORMAL)
[2020-05-11 20:58] LABS: BILIRUBIN,URINE NEGATIVE (NEGATIVE); CLARITY,URINE CLEAR (CLEAR); ICTOTEST,URINE NEGATIVE
[2020-05-11] MEDS ORDERED: diphenhydrAMINE 25 MG CAPSULE PO STA (22:44)
[2020-05-11] MEDS ORDERED: LORazepam 2 MG/ML VIAL IM STA (23:10)
[2020-05-12] MEDS ORDERED: POTASSIUM CHLORIDE 20 MEQ TABLET PO STA ×2 (07:32→10:54)
[2020-05-12 08:30] LABS: B. PARAPERTUSSIS- RESP PCR PAN NOT DETECTED; B. PERTUSSIS- RESP PCR PANEL NOT DETECTED; C. PNEUMONIAE- RESP PCR PANEL NOT DETECTED; CORONAVIRUS 229E-RESP PCR NOT DETECTED; CORONAVIRUS HKU1-RESP PCR NOT DETECTED; CORONAVIRUS NL63-RESP PCR NOT DETECTED; CORONAVIRUS OC43-RESP PCR NOT DETECTED; HUMAN METAPNEUMOVIRUS NOT DETECTED; INFLUENZA A- RESP PCR PANEL NOT DETECTED; INFLUENZA B - RESP PCR PANEL NOT DETECTED; M. PNEUMONIAE- RESP PCR PANEL NOT DETECTED; PARAINFLUENZA VIRUS 1 NOT DETECTED; PARAINFLUENZA VIRUS 2 NOT DETECTED; PARAINFLUENZA VIRUS 3 NOT DETECTED; PARAINFLUENZA VIRUS 4 NOT DETECTED; RHINOVIRUS/ENTEROVIRUS NOT DETECTED; RSV- RESP PCR PANEL NOT DETECTED; SARS-CoV-2 -RESP PCR PANEL NOT DETECTED
[2020-05-12] MEDS ORDERED: IOVERSOL 320 100 ML VIAL IVP ONE ×2 (08:30→09:49)
--- NOTE | 2020-05-12 08:39 | ED Physician Documentation ---
ED Addendum - Addendum Addendum: 05/12/20 08:38 Patient signed out to me by Dr. Wolfe at shift change. Briefly this is an 89-year-old woman who comes from [facility] with multiple falls. Per report from Dr. Wolfe daughter is unhappy with [facility] and would like alternatives sought. She was found to be hypoxic by the nurse, down to the mid 80s on room air placed on supplemental oxygen. She was having a lot of back pain so was sent back over given the multiple falls for imaging of her spine and head. This was reported verbally to me by the radiologist, Dr. Bateman who notes that the L1 compression fracture has progressed and is potentially pathologic. She does have a history of breast cancer. Given the hypoxemia also an expanded work-up was done to search for the cause of that. Twelve-lead EKG done at 0810 hrs. discloses normal sinus rhythm with a rate of 64. Normal UT and QT intervals. Borderline left axis deviation. No ST-T changes. 05/12/20 09:00 Procedure note: Peripheral IV placement. She was difficult for IV access and the nurses had tried and failed. She reportedly had previously had an IV but the patient had pulled out. I personally placed a long 20-gauge peripheral IV in the right AC using real-time ultrasound guidance after ChloraPrep. 05/12/20 09:41 Discussed with daughter in person. Confirms DNR/DNI status. We discussed the results of the L1 fracture being potentially pathologic. Her breast cancer was 20 years ago. 05/12/20 10:02 CT angiography of the chest shows significant clot burden and per verbal report from the radiologist there is evidence of right heart strain. I discussed this with the daughter and offered transfer to a tertiary facility for potential evaluation for thrombectomy or catheter guided thrombolysis which she declined feeling its not within current goals of care and preferred medical management. Call placed to the hospitalist for admission, he is in care conference and will call me back. Disposition: admitted to the hospital Condition: serious Diagnoses: 1. Large pulmonary embolism with right heart strain 2. Hypoxemia 3. Progressive L1 compression fracture 4. Concern for pathologic L1 compression fracture 5. Dementia 6. Altered mental status 7. Multiple falls 8. Failure to thrive
--- NOTE | 2020-05-12 08:51 | CT Report ---
PROCEDURE: HEAD WO INDICATIONS: multiple falls, back pain, altered TECHNIQUE: Noncontrast 4.5 mm thick angled axial sections acquired from the foramen magnum to the vertex. For r adiation dose reduction, the following was used: automated exposure control, adjustment of mA and/or kV according to patient size. COMPARISON: CT brain 03/04/2020 FINDINGS: Image quality: Excellent. The ventricular system and cortical sulci demonstrate atrophy, consistent for patient's stated age. There are areas of hypodensity in the periventricular and subcortical white matter. There is no acut e intra or extra-axial fluid collection. No acute hemorrhage, mass lesion or midline shift. Brainst em is unremarkable. Globes are symmetrical. Sinuses are aerated. Osseous structures are intact. IMPRESSION: 1. No acute intracranial process. 2. Moderate to severe atrophy and chronic microvascular ischemic changes. Reviewed by: Jannette Bateman MD on 05/12/2020 8:49 AM PDT Approved by: Jannette Bateman MD on 05/12/2020 8:49 AM PDT Station ID: [id number]
--- NOTE | 2020-05-12 08:53 | CT Report ---
PROCEDURE: LUMBAR SPINE WO INDICATIONS: multiple falls, back pain, altered TECHNIQUE: Noncontrast 3 mm thick sections acquired from the T12 level to the sacrum. Sagittal and coronal refo rmats were constructed. For radiation dose reduction, the following was used: automated exposure co ntrol, adjustment of mA and/or kV according to patient size. COMPARISON: CT lumbar spine 03/29/2020. FINDINGS: Image quality: Excellent. Bones: In the interval since the prior exam, there has been progressive compression deformity at L1, now measuring 44%. It is noted on prior exam but there are areas of increased sclerosis within the v ertebral body which appear slightly more prominent. There is a minimal appearance of retropulsion cau sing minimal to mild spinal stenosis. Multilevel moderate to severe degenerative disc space narrowing is present. Trace retrolisthesis is p resent of L1 on L2 and L5 on S1. Multilevel disc bulges as well as spinal stenosis and foraminal narrowing are present throughout the lumbar spine, relatively unchanged compared to prior exam. Soft tissues: No retroperitoneal masses or hematomas. Visualized aorta is normal in caliber. IMPRESSION: 1. Progressive compression deformity at L1 as described above. It is noted that there are areas of in ternal sclerosis within the vertebral body on prior exam, appearing slightly more prominent. While th is could represent a hemangioma with subsequent fracture, other etiologies such pathologic fracture s hould be considered particularly if there is a known primary malignancy. Further evaluation with MRI with and without contrast should be obtained on a nonemergent basis for further evaluation. Reviewed by: Jannette Bateman MD on 05/12/2020 8:52 AM PDT Approved by: Jannette Bateman MD on 05/12/2020 8:52 AM PDT Station ID: [id number]
--- NOTE | 2020-05-12 08:58 | CT Report ---
PROCEDURE: CERVICAL SPINE WO INDICATIONS: multiple falls, back pain, altered TECHNIQUE: Noncontrast 3 mm thick sections acquired from the skull base to the T4 level. Sagittal and coronal r eformats were then constructed. For radiation dose reduction, the following was used: automated exp osure control, adjustment of mA and/or kV according to patient size. COMPARISON: None. FINDINGS: Image quality: Excellent. Bones: No fractures or dislocations. Visualized superior ribs are intact. There is trace anterolis thesis of C2 on C3, trace retrolisthesis of C4 on C5, C5 and C6. Multilevel moderate to severe degene rative disc space narrowing is present. Soft tissues: Prevertebral soft tissues are normal in thickness. No paravertebral hematomas. No ap ical pneumothoraces. Mild soft tissue prominence is noted adjacent to the aorta along the medial lef t upper lobe. In comparison to prior exam, this appears to be a vascular prominence. IMPRESSION: Multilevel degenerative changes suggestive of fracture. Mild soft tissue prominence is noted adjacent to the aorta along the medial left upper lobe. In bartolo rison to prior exam, this appears to be a vascular prominence. Attention to this region on upcoming C T angiogram chest exam is recommended. Reviewed by: Jannette Bateman MD on 05/12/2020 8:56 AM PDT Approved by: Jannette Bateman MD on 05/12/2020 8:56 AM PDT Station ID: [id number]
--- NOTE | 2020-05-12 08:59 | CT Report ---
PROCEDURE: THORACIC SPINE WO INDICATIONS: multiple falls, back pain, altered TECHNIQUE: Noncontrast 3 mm thick sections acquired through the region of interest in the thoracic spine. Sagit willie and coronal reformats were then constructed. For radiation dose reduction, the following was used : automated exposure control, adjustment of mA and/or kV according to patient size. COMPARISON: CT thoracic spine 04/26/2020 FINDINGS: Image quality: Excellent. Bones: There is normal overall bony alignment. Partially visualized L1 compression deformity is pres ent. No suspicious sclerotic or lytic bony lesions. Central spinal canal is of normal overall calibe r. Multilevel degenerative changes are present. Soft tissues: No paravertebral masses or hematomas. Visualized posteromedial lungs appear clear. M inimal effusions. Heart is enlarged. Mild appearance of soft tissue prominence within the medial aspe ct of the left upper lobe. In comparison to prior exams, this appears to represent a mild vascular pr ominence. IMPRESSION: 1. Partially visualized L1 compression deformity. Please see CT lumbar spine report of 05/12/2020 for further details. 2.Mild appearance of soft tissue prominence within the medial aspect of the left upper lobe. In bartolo rison to prior exams, this appears to represent a mild vascular prominence. Attention to this region on scheduled CT angiogram chest is recommended. Reviewed by: Jannette Bateman MD on 05/12/2020 8:58 AM PDT Approved by: Jannette Bateman MD on 05/12/2020 8:58 AM PDT Station ID: [id number]
--- NOTE | 2020-05-12 09:17 | XRAY Report ---
PROCEDURE: Abdomen Acute INDICATIONS: no BM x 2 weeks TECHNIQUE: One view chest and two views of the abdomen were acquired. COMPARISON: None FINDINGS: Nonspecific moderate gaseous distention of numerous bowel loops in the abdomen and pelvis. There is n o threshold dilated air-filled loop by radiographic size criteria, although there may be a dilated fl uid-filled loop which is not visible radiographically. No pneumoperitoneum or pneumatosis identified. IMPRESSION: Nonspecific bowel gas pattern. If there is concern for obstruction, CT would be recommen ded. No significant change from preliminary report. Reviewed by: Kristopher Lambert MD on 05/12/2020 9:16 AM PDT Approved by: Kristopher Lambert MD on 05/12/2020 9:16 AM PDT Station ID: [id number]
[2020-05-12] MEDS ORDERED: ENOXAPARIN 80 MG/0.8 ML SYRINGE SUBQ STA (09:49)
--- NOTE | 2020-05-12 10:00 | CT Report ---
PROCEDURE: ANGIO CHEST W/WO INDICATIONS: hypoxemia, PE protocol CONTRAST: IV CONTRAST: Optiray 320 ml: 80 PO CONTRAST: *NO PO CONTRAST TECHNIQUE: After the administration of intravenous contrast, 2 mm thick sections acquired from the pulmonary api umang to the posterior costophrenic angles. 3-dimensional maximum intensity projection (MIP) coronal a nd sagittal reformats were then acquired through the thorax. For radiation dose reduction, the follow ing was used: automated exposure control, adjustment of mA and/or kV according to patient size. COMPARISON: None FINDINGS: Image quality: Excellent. Pulmonary arteries: Large saddle embolus noted in the right main pulmonary artery extending into the right upper, right lower and right middle lobe lobar, segmental and subsegmental pulmonary arteries. Moderate-sized pulmonary emboli noted in the left lower lobe or, segmental and subsegmental pulmonary arteries. Lungs and pleura: Atelectasis is noted in the dependent portions of the lungs. There is a 1.4 cm subs olid, subpleural nodule in the lateral periphery of the right upper lobe. No pleural effusions or pne umothorax. Central and peripheral airways are patent. Mediastinum: Heart size is normal, without pericardial effusion. RV/LV ratio 1.6. There is reflux co ntrast material into the inferior vena cava and the hepatic veins. No mediastinal or hilar adenopathy . Thoracic aorta is normal in caliber and enhancement. Esophagus is normal in caliber, without hiat al hernia. Bones and chest wall: No suspicious bony lesions. Ribs and thoracic spine appear intact throughout. The thyroid is normal. No axillary or supraclavicular adenopathy. Abdomen: Multiple partially calcified gallstones noted in the visualized gallbladder. Visualized upp er abdominal solid organs appear normal in the early arterial phase of enhancement. IMPRESSION: 1. Abnormal study demonstrating a large right-sided pulmonary embolus and moderate left-sided pulmona ry emboli. 2. CT evidence of right heart strain. 3. 1.6 cm upper lobe subsolid nodule. Recommend follow-up CT scan in 3-6 months based on criteria out lined below. 4. Cholelithiasis. Fleischner Society criteria for lung nodule followup. Subsolid nodules Solitary pure ground-glass nodule * nodule size <6mm * no CT follow-up required * nodule size ?6mm * follow up CT at 6-12 months, then every 2 years until 5 years Solitary part-solid nodule * nodule size <6mm * no CT follow-up required * nodule size ?6mm * follow-up CT at 3-6 months * if unchanged, and solid component remains <6mm, then annual follow-up for 5 years Multiple subsolid nodules * nodule size <6mm * follow-up CT at 3-6 months * consider further follow-up at 2 and 4 years if stable * nodule size ?6mm * follow-up CT at 3-6 months * subsequent management based on the most suspicious nodule(s) Recommendations do not apply to lung cancer screening, patient's with immunosuppression or patients w ith known primary cancer. Reviewed by: Fiorella Duke MD, PhD on 05/12/2020 9:59 AM PDT Approved by: Fiorella Duke MD, PhD on 05/12/2020 9:59 AM PDT Station ID: [id number]
[2020-05-12] MEDS ORDERED: ONDANSETRON 4 MG/2 ML VIAL IVP PRN (10:35)
--- NOTE | 2020-05-12 10:53 | HISTORY & PHYSICAL EXAMINATION ---
Chief Complaint - Chief Complaint Chief Complaint: back pain History of Present Illness - Admitted From Admitted From:: ER - History Obtained From Records Reviewed: [facility] History obtained from: pt's daughter, unfortunately pt has advanced dementia and ccnfused Exam Limitations: pt has advanced dementia and confused - History of Present Illness HPI Comment/Other: This is a [id number] female with a past medical history significant for advanced dementia, frequent falls, COPD, Polyps, breast cancer, chronic back pain, osteoarthritis Who present to ER for evaluation of severe back pain, falls and later hypoxia. Patient has a history advanced dementia with confused, She could not provide any medical history. Her daughter is in her bedside, she help provide medical history. Daughter report Her mother recently had rest care to [facility]. In [facility], patient continues complain severe back pain, repeat falls, recently she had 6 falls in the [facility]. Also patient recently has loss of appetite and she does not want to eating, And presented hallucination as well. Pt has been unable to stand or ambulate due to severe pain. She is bed- bound now. When Patient was in the ER waiting social work for her replacement, Patient developed hypoxia. She has required oxygen supplement to support her O2 sats. CT of lumbar spinal show patient had progressively compression deformity at L1, one of etiology be pathological fracture, pt had hx of breast cancer. MRI of the spine can help clarify the etiology but pt's daughter declined the service because of pt's past terrified Claustrophobia. CTA of chest show A large right side pulmonary embolus and moderate left side pulmonary emboli, CT evidence of right heart strain, 1.6cm upper lobe subsolid nodule. Patient's daughter declined patient be transferred to higher level care because of pt's evidence of right heart strain at ER. I also discussed the care plan with the patient's daughter at bedside. she would like to focus on pt's pain control, comfortable care, continue to treat her mother's PE with blood thinner on today. She will discuss with her brother, and will likely choose hospice care for her mother on tomorrow. Her daughter confirm Pt's code status is DNR/DNI. History - Past Medical History Respiratory: reports: COPD Neuro: reports: Dementia GI: reports: Colon polyps SAP BASIS: reports: Breast cancer Musculoskeletal: reports: Osteoarthritis, Chronic back pain Derm: reports: Other MRSA Hx?: No - Past Surgical History General: reports: Appendectomy, Splenectomy, Colonoscopy /SAP BASIS: reports: Mastectomy Derm: reports: Skin cancer surgery - Family & Social History Family History: Mother: , Father: Family History Comment/Other: Patient's daughter report her grandfather at age 92 due to severe CHF. Her grandmother at age 90 due to advanced dementia and its complication Social History Notes: Per pt's Daughter report, patient quit smoking at 1998, pt has no alcohol and drug issue. - POLST Patient has POLST: No Meds/Allgy - Home Medications Home Medications: Ambulatory Orders Medication Instructions Recorded Confirmed Acetaminophen [Tylenol] 325 mg PO BID 05/11/20 05/11/20 Cholecalciferol (Vitamin D3) 50 mcg PO DAILY 05/12/20 05/12/20 [Vitamin D3] Docusate Sodium 100Mg Capsule 100 mg PO BID 05/12/20 05/12/20 [Colace 100Mg Capsule] Escitalopram Oxalate 20 mg PO DAILY 05/12/20 05/12/20 Multivitamin 1 tab PO DAILY 05/12/20 05/12/20 Senna [Senokot] 8.6 mg PO BID PRN 05/12/20 05/12/20 oxyCODONE [Roxicodone] 5 mg PO Q6H PRN 05/12/20 05/12/20 - Allergies Allergies/Adverse Reactions: Allergies Allergy/AdvReac Type Severity Reaction Status Date / Time acetaminophen Allergy Unknown Verified 05/11/20 18:35 [From Darvocet-N] cephalexin monohydrate * Allergy Unknown Verified 05/11/20 18:35 [From Keflex] diazepam Allergy Unknown Verified 05/11/20 18:35 erythromycin base Allergy Unknown Verified 05/11/20 18:35 levofloxacin [From Levaquin] Allergy Unknown Verified 05/12/20 11:00 Penicillins Allergy Unknown Verified 05/11/20 18:35 petrolatum,white Allergy Unknown Verified 05/11/20 18:35 [From Petroleum Jelly] prednisone Allergy Unknown Verified 05/11/20 18:35 propoxyphene napsylate * Allergy Unknown Verified 05/11/20 18:35 [From Darvocet-N] Sulfa (Sulfonamide Allergy Unknown Verified 05/11/20 18:35 Antibiotics) vicryl sutures Allergy Unknown Uncoded 04/27/16 04:29 Review of Systems - Constitutional Constitutional: reports: Poor appetite. denies: Fever, Chills - Eyes Eyes: denies: Pain, Field loss, Vision loss - Ears, Nose & Throat Ears, Nose & Throat: denies: Ear pain, Nosebleeds, Bleeding gums - Cardiovascular Cariovascular: denies: Chest pain, Syncope - Respiratory Respiratory: denies: Cough, Wheezing, Hemoptysis, SOB at rest - Gastrointestinal Gastrointestinal: denies: Abdominal pain, Diarrhea, Black stools, Bloody stools, Nausea, Vomiting - Genitourinary Genitourinary: denies: Dysuria, Incontinence - Musculoskeletal Musculoskeletal: reports: Back pain. denies: Stiffness - Integumentary Integumentary: denies: Rash, Lesions - Neurological Neurological: denies: Focal weakness, Headache, Numbness, Pre-existing deficit, Seizures, Incoordination Prior Level of Functionality: Patient is bedbound in [facility] Exam - Vital Signs Vital Signs: Vital Signs x48h Pulse Resp BP Pulse Ox 05/12/20 08:30 87 16 139/77 H 95 05/12/20 08:10 74 16 92 05/12/20 08:00 70 16 128/92 H 87 L 05/12/20 07:08 68 132/67 H 96 05/12/20 03:40 60 18 118/72 96 - Physical Exam General Appearance: positive: No acute distress, Alert, Lethargic Eyes Bilateral: positive: Normal inspection, PERRL, No lid inflammation ENT: positive: ENT inspection nml, No signs of dehydration. negative: Purulent nasal drainage Neck: positive: Nml inspection, Trachea midline. negative: Thyromegaly, Tracheal deviation Respiratory: positive: Chest non-tender, No respiratory distress. negative: Wheezes, Rales Cardiovascular: positive: Regular rate & rhythm, No murmur. negative: Tachycardia, Bradycardia, Systolic murmur, Diastolic murmur Peripheral Pulses: positive: 2+ Abdomen: positive: No organomegaly, Nml bowel sounds, No distention. negative: Tenderness, Guarding, Rebound Back: positive: Nml inspection, Other (decline to have assessment for her back) Skin: positive: Color nml, Warm, Dry. negative: Cyanosis, Diaphoresis, Pallor Extremities: positive: Non-tender, Nml appearance Neurologic/Psychiatric: positive: Sensation nml. negative: Weakness, Sensory loss, Facial droop Conclusion/Plan - Problem List (1) Pulmonary emboli Conclusion/Plan: Patient needed 2 L of the oxygen to support her O2 sats. CTA of chest show A large right side pulmonary embolus and moderate left side pulmonary emboli, CT evidence of right heart strain. Patient's daughter declined to transfer pt for higher level care, she migh choose hospice care for her mother on tomorrow if pt's condition does not improve. Patient already had intravenous Lovenox, we will give Lovenox twice daily, Continue supplemental oxygen as needed, continue vital signs monitor (2) Compression fx, lumbar spine Conclusion/Plan: Patient complaint severe progressively back pain, CT of lumbar spinal show p atient had progressively compression deformity at L1, etiology could be pathological fracture, pt had hx of breast cancer. Patient's daughter would like patient to have focus on comfortable care and pain control, no further intervention. We will continue pain control, focus comfortable care (3) Advanced dementia Conclusion/Plan: Patient has history of advanced dementia, We will continue support patient. At this point patient declined eating. We will continue to discuss with the patient's daughter for further care plan (4) Failure to thrive Conclusion/Plan: Pt's Daughter report patient recently Loss of of appetite and refused eating. We will give patient intravenous IV fluids now, we will further discuss the care plan with the patient's daughter (5) Hx of breast cancer Conclusion/Plan: Patient has a history of breast cancer, right now not on chemo treatment. Now CAT scan show possible pathological spinal compression fracture. Pt's Daughter declined to have MRI for patient. We will continue supportive to patient, discussed with the patient's daughter for further care plan (6) Anorexia Conclusion/Plan: Patient lost of appetite and declined to eating now. We will discuss with the patient's family for further care plan - Lab Results Fish Bones: 05/11/20 19:15 05/11/20 19:15 Core Measures - Anticipated LOS I expect patient to be DC'd or transferred within 96 hours.: Yes - DVT/VTE - Prophylaxis VTE/DVT Device ordered at admit?: Yes VTE/DVT Prophylaxis med ordered at admit?: Yes
[2020-05-12] MEDS ORDERED: D5.45NS W/20 MEQ KCL 1,000 ML IV SCH (11:00)
[2020-05-12] MEDS: D5.45NS W/20 MEQ KCL 1,000 ML IV SCH (13:11)
[2020-05-12] MEDS: SODIUM CHLORIDE FLUSH 0.9% 10 ML SYRINGE IVP PRN (13:11)
--- NOTE | 2020-05-12 13:13 | PHARMACY PROGRESS NOTE ---
- Best Possible Medication History Admit Date and Time: 05/12/20 1035 Processed by: Pharmacy Medication History completed: Yes Patient Interview: Completed Secondary Source(s): Written medication list, Physician records, Pharmacy records (PATIENT'S MEDICATION MAR OBTAINED FROM [facility]. MEDICATION RECONCILITATION COMPLETED USING THE FACILIT MAR. ) As the person ultimately responsible for medication therapy, providers are able to order a medication from an existing home medication list in [facility] via the "Reconcile Routine" prior to Confirmation of that medication by customer support consultant. Such practice is discouraged except when the physician, in their clinical judgment, deems that a medical need exists for a medication without regard to previous use.
[2020-05-12] MEDS: POTASSIUM CHLOR 10 MEQ/100 ML 10 MEQ/100 ML BAG IV SCH ×4 (13:58→17:32)
[2020-05-12] MEDS ORDERED: MORPHINE 2 MG/ML CARPUJECT IVP PRN (13:59)
[2020-05-12] MEDS ORDERED: HYDROmorphone 0.5 MG/0.5 ML SYRINGE IVP PRN (14:01)
[2020-05-12] MEDS: SODIUM CHLORIDE FLUSH 0.9% 10 ML SYRINGE IVP SCH (16:08)
[2020-05-12] MEDS: ENOXAPARIN 80 MG/0.8 ML SYRINGE SUBQ SCH (20:26)
[2020-05-12] MEDS ORDERED: FAMOTIDINE 20 MG TABLET PO SCH (21:00)
[2020-05-13] MEDS: SODIUM CHLORIDE FLUSH 0.9% 10 ML SYRINGE IVP SCH ×3 (01:42→16:56)
[2020-05-13 04:54] LABS: BASOPHILS # (AUTO) 0.1 10^3/uL (0.0-0.1); EOSINOPHILS # (AUTO) 0.2 10^3/uL (0.0-0.7); EOSINOPHILS % (AUTO) 2.1 %; HGB - HEMOGLOBIN 13.8 g/dL (12.0-16.0); LYMPHOCYTES # (AUTO) 1.4 10^3/uL (1.5-3.5); LYMPHOCYTES % (AUTO) 19.7 %; MEAN CORPUSCULAR HGB CONC 32.1 g/dL (32.0-36.0); MEAN CORPUSCULAR VOLUME 96.6 fL (81.0-99.0); MEAN PLATELET VOLUME 10.5 fL (7.9-10.8); MONOCYTES # (AUTO) 0.7 10^3/uL (0.0-1.0); MONOCYTES % (AUTO) 10.2 %; NEUTROPHILS # (AUTO) 4.8 10^3/uL (1.5-6.6); NEUTROPHILS % (AUTO) 66.2 %; PLT - PLATELET COUNT 311 10^3/uL (130-450); RED BLOOD COUNT 4.45 10^6/uL (4.20-5.40); RED CELL DISTRIBUTION WIDTH 14.8 % (12.0-15.0); WHITE BLOOD COUNT 7.3 x10^3/uL (4.8-10.8)
[2020-05-13 05:06] LABS: CALCIUM 8.8 mg/dL (8.5-10.3); CREATININE 0.4 mg/dL (0.4-1.0); POTASSIUM 3.4 mmol/L (3.5-5.0)
[2020-05-13] MEDS: D5.45NS W/20 MEQ KCL 1,000 ML IV SCH ×3 (06:23→20:27)
[2020-05-13] MEDS: polyethylene glycoL 3350 17 GM PACKET PO SCH (09:08)
[2020-05-13] MEDS: ENOXAPARIN 80 MG/0.8 ML SYRINGE SUBQ SCH (09:09)
[2020-05-13] MEDS: POTASSIUM CHLOR 10 MEQ/100 ML 10 MEQ/100 ML BAG IV SCH ×2 (09:23→10:39)
[2020-05-13] MEDS: ACETAMINOPHEN 325 MG TABLET PO PRN ×3 (10:35→20:52)
--- NOTE | 2020-05-13 14:49 | PROVIDER PROGRESS NOTE ---
Subjective - Prog Note Date Prog Note Date: 05/13/20 - Subjective Pt reports feeling: No change Subjective: pt is confused as her baseline. pt's daughter is at the bedside. After pt's daughter talked with her family, she made the decision to choose hospice care for her mother. After discussed with the care plan with Dr. Brownlee by phone, he accepted pt for hospice care. social security specialist is consulted for the disposition. Current Medications - Current Medications Current Medications: Active Medications Acetaminophen (Acetaminophen 325 Mg Tablet) 650 mg PO Q4HR PRN PRN Reason: Pain 1 to 4 Last Admin: 05/13/20 10:35 Dose: 650 mg Documented by: Enoxaparin Sodium (Enoxaparin 80 Mg/0.8 Ml Syringe) 80 mg SUBQ BID [facility] Last Admin: 05/13/20 09:09 Dose: 80 mg Documented by: Hydromorphone HCl (Hydromorphone 0.5 Mg/0.5 Ml Syringe) 0.5 mg IVP Q2H PRN PRN Reason: PAIN Last Admin: 05/12/20 15:01 Dose: 0.5 mg Documented by: Potassium Chloride/Dextrose/Sod Cl (D5.45ns W/20 Meq Kcl) 1,000 mls @ 100 mls/hr IV .Q10H [facility] Last Infusion: 05/13/20 12:23 Dose: 100 mls/hr Documented by: Lorazepam (Lorazepam 0.5 Mg Tablet) 0.5 mg PO Q6H PRN PRN Reason: Anxiety Ondansetron HCl (Ondansetron 4 Mg/2 Ml Vial) 4 mg IVP Q6HR PRN PRN Reason: Nausea / Vomiting Oxycodone HCl (Oxycodone 5 Mg Tablet) 5 mg PO Q4HR PRN PRN Reason: Pain 5 to 7 Polyethylene Glycol (Polyethylene Glycol 3350 17 Gm Packet) 17 gm PO DAILY [facility] Last Admin: 05/13/20 09:08 Dose: 17 gm Documented by: Sodium Chloride (Sodium Chloride Flush 0.9% 10 Ml Syringe) 10 ml IVP PRN PRN PRN Reason: NEEDED PER PROVIDER ORDERS Last Admin: 05/12/20 13:11 Dose: 10 ml Documented by: Sodium Chloride (Sodium Chloride Flush 0.9% 10 Ml Syringe) 10 ml IVP 0100,0900,1700 [facility] Last Admin: 05/13/20 09:58 Dose: Not Given Documented by: Acetaminophen [Tylenol] 325 mg PO BID 05/11/20 Cholecalciferol (Vitamin D3) [Vitamin D3] 50 mcg PO DAILY 05/12/20 Docusate Sodium 100Mg Capsule [Colace 100Mg Capsule] 100 mg PO BID 05/12/20 Escitalopram Oxalate 20 mg PO DAILY 05/12/20 Multivitamin 1 tab PO DAILY 05/12/20 Senna [Senokot] 8.6 mg PO BID PRN 05/12/20 oxyCODONE [Roxicodone] 5 mg PO Q6H PRN 05/12/20 Objective - Vital Signs/Intake & Output Vital Signs: Vital Signs x48h Temp Pulse Resp BP 05/13/20 08:00 37 C 80 20 130/71 Intake & Output: Intake & Output 05/10/20 05/11/20 05/12/20 05/13/20 23:59 23:59 23:59 23:59 Intake Total 637 719.483 5489.334 Output Total 200 400 Balance 637 598.019 5957.334 - Objective General Appearance: positive: Alert, Mild distress. negative: Lethargic Eyes Bilateral: positive: Normal inspection, PERRL, No lid inflammation ENT: positive: ENT inspection nml, No signs of dehydration. negative: Purulent nasal drainage Neck: positive: Nml inspection, Trachea midline. negative: Thyromegaly, Tr acheal deviation Respiratory: positive: Chest non-tender, No respiratory distress. negative: Wheezes Cardiovascular: positive: Regular rate & rhythm, No murmur. negative: Tachycardia, Bradycardia, Systolic murmur, Diastolic murmur Peripheral Pulses: 2+ Radial (R), 2+ Radial (L) Abdomen: positive: Non-tender, Nml bowel sounds, No distention. negative: Tenderness, Guarding, Rebound Back: positive: Nml inspection, CVA tenderness (L) Skin: positive: Color nml, Warm, Dry. negative: Cyanosis, Diaphoresis, Pallor Extremities: positive: Non-tender, Nml appearance. negative: Calf tenderness Neurologic/Psychiatric: positive: Sensation nml. negative: Sensory loss, Facial droop, Slurred/abnml speech - Lab Results Fish Bones: 05/13/20 04:25 05/13/20 04:25 Other Labs: Lab Results x24hrs 05/13/20 05/13/20 05/12/20 Range/Units 04:25 04:25 15:10 WBC 7.3 (4.8-10.8) x10^3/uL RBC 4.45 (4.20-5.40) 10^6/uL Hgb 13.8 (12.0-16.0) g/dL Hct 43.0 (37.0-47.0) % MCV 96.6 (81.0-99.0) fL MCH 31.0 (27.0-31.0) pg MCHC 32.1 (32.0-36.0) g/dL RDW 14.8 (12.0-15.0) % Plt Count 311 (130-450) 10^3/uL MPV 10.5 (7.9-10.8) fL Neut # (Auto) 4.8 (1.5-6.6) 10^3/uL Lymph # (Auto) 1.4 L (1.5-3.5) 10^3/uL Gray # (Auto) 0.7 (0.0-1.0) 10^3/uL Eos # (Auto) 0.2 (0.0-0.7) 10^3/uL Baso # (Auto) 0.1 (0.0-0.1) 10^3/uL Absolute Nucleated RBC 0.00 x10^3/uL Nucleated RBC % 0.0 /100WBC Sodium 139 (135-145) mmol/L Potassium 3.4 L (3.5-5.0) mmol/L Chloride 106 (101-111) mmol/L Carbon Dioxide 26 (21-32) mmol/L Anion Gap 7.0 (6-13) BUN 7 (6-20) mg/dL Creatinine 0.4 (0.4-1.0) mg/dL Estimated GFR (MDRD) 151 (>89) Glucose 106 H (70-100) mg/dL Calcium 8.8 (8.5-10.3) mg/dL Troponin I High Sens 31.8 H* (2.3-14.8) ng/L ABX Reporting Has patient been on IV antibiotics over the past 48 hours?: No Sepsis Event Note (H) - Evaluation Current Stage of Sepsis: Ruled out Assessment/Plan - Problem List (1) Pulmonary emboli Impression: (1) Pulmonary emboli 05/13 pt need 3 liter of O2 support new. She has no tachypnea, tachycardia. continue Lovenox now, supplement of O2 as needed. Patient needed 2 L of the oxygen to support her O2 sats. CTA of chest show A large right side pulmonary embolus and moderate left side pulmonary emboli, CT evidence of right heart strain. Patient's daughter declined to transfer pt for higher level care, she migh choose hospice care for her mother on tomorrow if pt's condition does not improve. Patient already had intravenous Lovenox, we will give Lovenox twice daily, Continue supplemental oxygen as needed, continue vital signs monitor (2) Compression fx, lumbar spine Conclusion/Plan: 05/13 pt still present significant pain. At this point, patient needed total care, patient's bedbound. For patient's quality of life, patient's Daughter choose hospice care Patient complaint severe progressively back pain, CT of lumbar spinal show patient had progressively compression deformity at L1, etiology could be pathological fracture, pt had hx of breast cancer. Patient's daughter would like patient to have focus on comfortable care and pain control, no further intervention. We will continue pain control, focus comfortable care (3) Advanced dementia Conclusion/Plan: 05/13 Patient is still confused as her baseline, advanced dementia. Patient needed total care, her daughter choose hospice care. Patient has history of advanced dementia, We will continue support patient. At this point patient declined eating. We will continue to discuss with the patient's daughter for further care plan (4) Failure to thrive Conclusion/Plan: 05/13 per daughter report pt still refused to eat, pt has hx of advanced dementia, her daughter choose hospice care. Pt's Daughter report patient recently Loss of of appetite and refused eating. We will give patient intravenous IV fluids now, we will further discuss the care plan with the patient's daughter (5) breast cancer Conclusion/Plan: Patient has a history of breast cancer, right now not on chemo treatment. Now CAT scan show possible pathological spinal compression fracture. Pt's Daughter declined to have MRI for patient. We will continue supportive to patient, discussed with the patient's daughter for further care plan (6) Anorexia Conclusion/Plan: 05/13 pt still refused to eat, her daughter choose hospice care. Patient lost of appetite and declined to eating now. We will discuss with the patient's family for further care plan (7)encounter for hospice care Patient has history of advanced dementia, frequent falls, Prostate cancer, pathological compression spinal fracture with pain, pt require to have total care, Refused to eat, anorexia, failure to thrive, and with large bilateral PE with right heart strain. Patient's daughter choose hospice care, hospice Dr. Brownlee accepted patient. Social work was consulted for safely disposition.
[2020-05-13] MEDS: oxyCODONE 5 MG TABLET PO PRN (15:15)
[2020-05-13] MEDS: LORazepam 0.5 MG TABLET PO PRN ×2 (16:56→22:43)
[2020-05-14] MEDS: SODIUM CHLORIDE FLUSH 0.9% 10 ML SYRINGE IVP SCH ×3 (01:16→17:29)
[2020-05-14] MEDS: LORazepam 0.5 MG TABLET PO PRN (05:10)
[2020-05-14] MEDS: oxyCODONE 5 MG TABLET PO PRN ×2 (05:10→09:28)
[2020-05-14] MEDS: D5.45NS W/20 MEQ KCL 1,000 ML IV SCH (06:08)
[2020-05-14] MEDS ORDERED: DEXTROSE 5%-0.45% NACL 1,000 ML IV SCH (08:00)
[2020-05-14] MEDS: polyethylene glycoL 3350 17 GM PACKET PO SCH (09:23)
--- NOTE | 2020-05-14 10:52 | PROVIDER PROGRESS NOTE ---
Subjective - Prog Note Date Prog Note Date: 05/14/20 - Subjective Subjective: Patient reports feeling comfortable. She states pain is controlled. Her daughter is present at bedside. Daughter believes that mom is comfortable at this time. Current Medications - Current Medications Current Medications: Active Medications Acetaminophen (Acetaminophen 325 Mg Tablet) 650 mg PO Q4HR PRN PRN Reason: Pain 1 to 4 Last Admin: 05/13/20 20:52 Dose: 650 mg Documented by: Lorazepam (Lorazepam 2 Mg/Ml Vial) 1 mg IVP Q4H PRN PRN Reason: Anxiety Morphine Sulfate (Morphine 2 Mg/Ml Carpuject) 2 mg IVP Q30M PRN PRN Reason: NEEDED PER PROVIDER ORDERS Ondansetron HCl (Ondansetron 4 Mg/2 Ml Vial) 4 mg IVP Q6HR PRN PRN Reason: Nausea / Vomiting Sodium Chloride (Sodium Chloride Flush 0.9% 10 Ml Syringe) 10 ml IVP PRN PRN PRN Reason: NEEDED PER PROVIDER ORDERS Last Admin: 05/12/20 13:11 Dose: 10 ml Documented by: Sodium Chloride (Sodium Chloride Flush 0.9% 10 Ml Syringe) 10 ml IVP 0100,0900,1700 SHANE Last Admin: 05/14/20 09:24 Dose: Not Given Documented by: Acetaminophen [Tylenol] 325 mg PO BID 05/11/20 Cholecalciferol (Vitamin D3) [Vitamin D3] 50 mcg PO DAILY 05/12/20 Docusate Sodium 100Mg Capsule [Colace 100Mg Capsule] 100 mg PO BID 05/12/20 Escitalopram Oxalate 20 mg PO DAILY 05/12/20 Multivitamin 1 tab PO DAILY 05/12/20 Senna [Senokot] 8.6 mg PO BID PRN 05/12/20 oxyCODONE [Roxicodone] 5 mg PO Q6H PRN 05/12/20 Objective - Vital Signs/Intake & Output Reviewed Vital Signs: Yes Vital Signs: Vital Signs x48h Temp Pulse Resp BP Pulse Ox 05/14/20 08:15 36.4 C L 71 18 117/71 96 Intake & Output: Intake & Output 05/11/20 05/12/20 05/13/20 05/14/20 23:59 23:59 23:59 23:59 Intake Total 637 536.293 5424.001 1431.663 Output Total 265 206 7620 Balance 637 754.069 0914.001 -1593.337 - Objective General Appearance: positive: Other (She appears comfortable in bed. She will answer a few questions but will keep her eyes open.) Eyes Bilateral: positive: Normal inspection ENT: positive: ENT inspection nml Respiratory: positive: Other (Does not appear to be in distress and is not tachy pneic.) Neurologic/Psychiatric: negative: Disoriented to person - Lab Results Fish Bones: 05/13/20 04:25 05/14/20 09:15 Other Labs: Lab Results x24hrs 05/14/20 Range/Units 09:15 Potassium 4.1 (3.5-5.0) mmol/L Sepsis Event Note (H) - Evaluation Current Stage of Sepsis: Ruled out Assessment/Plan - Problem List (1) Acute saddle pulmonary embolism Impression: This was present on admission. She had associated hypoxia and evidence of right heart strain on imaging. An echocardiogram was not obtained as it would not have change management coordinator. She was initially anticoagulated with Lovenox but family yesterday decided to focus on comfort care only. Lovenox has since been discontinued. We are continuing her on submental oxygen using morphine as needed for pain and dyspnea. We are working with social work regarding disposition. Hospice has already been consulted and we appreciate their input. (2) Need for comfort care Impression: Has decided to focus on comfort care only. Hospice was consulted and the patient was seen by Dr. Brownlee yesterday. At this time, we are working with social work regarding disposition. We will continue the patient on morphine IV as needed for pain and dyspnea. She also has Ativan IV as needed. We will discontinue all IV fluids and labs. (3) Compression fx, lumbar spine Impression: This was evident on imaging and concern was that this may be pathologic. The focus is now on comfort care and so we will continue with IV morphine while she is hospitalized. We will look to transition her to oral Roxanol on discharge. (4) Failure to thrive Impression: She has had poor nutrition and evidence of malnutrition over the past few weeks due to poor oral intake likely due to her advanced dementia. The focus is now on comfort measures only. (5) Advanced dementia Impression: She has advanced dementia at baseline. The focus is now on comfort care and we will discharge her on hospice.
[2020-05-14] MEDS ORDERED: oxyCODONE 5 MG TABLET PO PRN (13:54)
[2020-05-14] MEDS: LORazepam 2 MG/ML VIAL IVP PRN ×2 (17:29→22:05)
[2020-05-14] MEDS ORDERED: HALOPERIDOL 5 MG/ML VIAL IVP PRN (17:45)
[2020-05-14] MEDS: oxyCODONE 5 MG TABLET PO SCH (20:11)
[2020-05-14] MEDS: SODIUM CHLORIDE FLUSH 0.9% 10 ML SYRINGE IVP PRN (22:06)
[2020-05-15] MEDS: LORazepam 2 MG/ML VIAL IVP PRN ×3 (00:05→18:16)
[2020-05-15] MEDS: oxyCODONE 5 MG TABLET PO SCH ×4 (00:44→08:58)
[2020-05-15] MEDS: SODIUM CHLORIDE FLUSH 0.9% 10 ML SYRINGE IVP SCH ×3 (00:45→16:41)
[2020-05-15] MEDS: MORPHINE 2 MG/ML CARPUJECT IVP PRN ×2 (05:58→08:58)
--- NOTE | 2020-05-15 07:37 | PROVIDER PROGRESS NOTE ---
Subjective - Prog Note Date Prog Note Date: 05/15/20 - Subjective Subjective: Daughter is present at bedside. She feels mom appears comfortable this morning although she reports she is little agitated this morning. Patient is sleeping comfortably in bed. Current Medications - Current Medications Current Medications: Active Medications Acetaminophen (Acetaminophen 325 Mg Tablet) 650 mg PO Q4HR PRN PRN Reason: Pain 1 to 4 Last Admin: 05/13/20 20:52 Dose: 650 mg Documented by: Haloperidol (Haloperidol 5 Mg/Ml Vial) 1 mg IVP Q6H PRN PRN Reason: Agitation Lorazepam (Lorazepam 2 Mg/Ml Vial) 1 mg IVP Q4H PRN PRN Reason: Anxiety Last Admin: 05/15/20 00:05 Dose: 1 mg Documented by: Morphine Sulfate (Morphine 2 Mg/Ml Carpuject) 2 mg IVP Q30M PRN PRN Reason: NEEDED PER PROVIDER ORDERS Last Admin: 05/15/20 08:58 Dose: 2 mg Documented by: Ondansetron HCl (Ondansetron 4 Mg/2 Ml Vial) 4 mg IVP Q6HR PRN PRN Reason: Nausea / Vomiting Oxycodone HCl (Oxycodone 5 Mg Tablet) 5 mg PO Q4HR [facility] Last Admin: 05/15/20 08:58 Dose: Not Given Documented by: Sodium Chloride (Sodium Chloride Flush 0.9% 10 Ml Syringe) 10 ml IVP PRN PRN PRN Reason: NEEDED PER PROVIDER ORDERS Last Admin: 05/14/20 22:06 Dose: 10 ml Documented by: Sodium Chloride (Sodium Chloride Flush 0.9% 10 Ml Syringe) 10 ml IVP 0100,0900,1700 [facility] Last Admin: 05/15/20 08:58 Dose: 10 ml Documented by: Acetaminophen [Tylenol] 325 mg PO BID 05/11/20 Cholecalciferol (Vitamin D3) [Vitamin D3] 50 mcg PO DAILY 05/12/20 Docusate Sodium 100Mg Capsule [Colace 100Mg Capsule] 100 mg PO BID 05/12/20 Escitalopram Oxalate 20 mg PO DAILY 05/12/20 Multivitamin 1 tab PO DAILY 05/12/20 Senna [Senokot] 8.6 mg PO BID PRN 05/12/20 oxyCODONE [Roxicodone] 5 mg PO Q6H PRN 05/12/20 Objective - Vital Signs/Intake & Output Reviewed Vital Signs: Yes Intake & Output: Intake & Output 05/12/20 05/13/20 05/14/20 05/15/20 23:59 23:59 23:59 23:59 Intake Total 588.179 4974.001 1899.663 Output Total 760 200 1171 500 Balance 033.927 8287.001 -1625.337 -500 - Objective General Appearance: positive: Other (She is sleeping comfortably in bed. She does not participate in a conversation.) Respiratory: positive: No respiratory distress - Lab Results Fish Bones: 05/13/20 04:25 05/14/20 09:15 Other Labs: Lab Results x24hrs 05/14/20 Range/Units 09:15 Potassium 4.1 (3.5-5.0) mmol/L Sepsis Event Note (H) - Evaluation Current Stage of Sepsis: Ruled out Assessment/Plan - Problem List (1) Acute saddle pulmonary embolism Impression: This was present on admission. Family has decided to pursue comfort measures only. Lovenox has since been discontinued. Plan to discharge her home tomorrow with hospice. (2) Need for comfort care Impression: Her family has decided on comfort care only. Her daughter has set up caregivers at home and hospice will be admitting the patient tomorrow afternoon. She had been receiving oxycodone orally yesterday but we will switch her to Roxanol as this is what she will be discharged with when she goes home. We will continue with Ativan and Haldol as needed. (3) Compression fx, lumbar spine Impression: This is concerning for possible pathologic fracture. The goal is comfort at this time we will continue with morphine as needed for pain control. (4) Failure to thrive Impression: She has had poor nutrition and evidence of malnutrition over the past few weeks due to poor oral intake likely due to her advanced dementia. The focus is now on comfort measures only. (5) Advanced dementia Impression: She has advanced dementia at baseline. The focus is now on comfort care and we will discharge her on hospice.
[2020-05-15] MEDS: SODIUM CHLORIDE FLUSH 0.9% 10 ML SYRINGE IVP PRN ×2 (10:22→18:16)
[2020-05-15] MEDS: MORPHINE SOL 10 MG/0.5 ML ORAL SYRINGE PO PRN ×3 (11:19→20:48)
--- NOTE | 2020-05-15 14:01 | Discharge Plan ---
Discharge Plan Problem Reviewed?: Yes Disposition: 50 Hospice/Home DC/Xfer Condition: Serious Health Concerns: You were admitted to the hospital because of blood clot in your lungs which caused you to have low oxygen levels. You were also found to have a compression fracture in your lumbar spine. You were initially treated with blood thinners to treat the blood clot. Unfortunately, your clinical condition has declined and the plan is to focus on your comfort. Hospice was consulted and you will be now discharged home on hospice with the goal of focusing on your comfort and treating your pain. Follow-Up Care: Hospice No Smoking: If you smoke, Please STOP! Call for help. Follow-up with: Veronica Kennedy ARNP [Primary Care Provider] -
--- NOTE | 2020-05-15 14:33 | DISCHARGE SUMMARY ---
"Discharge Summary Admit Date: 05/12/20 Discharge Date: 05/16/20 Discharging Provider: Angelo Mckeon Primary Care Provider: Veronica Kennedy Code Status: Do Not Attempt Resuscitation Condition at Discharge: Serious Discharge Disposition: 50 Hospice/Home DC/Xfer - DIAGNOSES Admission Diagnoses: Pulmonary emboli Compression fracture, lumbar spine Advanced dementia Failure to thrive History of breast cancer Anorexia Discharge Diagnoses with Status of Each Condition: Acute saddle pulmonary embolism - ongoing. Need for comfort care - ongoing. Compression fracture, lumbar spine - stable. Failure to thrive - ongoing. Advanced dementia - stable. - HPI History of Present Illness: H&P per FRANK Delacruz on 05/12/20: This is a [id number] female with a past medical history significant for advanced dementia, frequent falls, COPD, Polyps, breast cancer, chronic back pain, osteoarthritis Who present to ER for evaluation of severe back pain, falls and later hypoxia. Patient has a history advanced dementia with confused, She could not provide any medical history. Her daughter is in her bedside, she help provide medical history. Daughter report Her [facility], patient continues complain severe back pain, repeat falls, recently she had 6 falls in the [facility]. Also patient recently has loss of appetite and she does not want to eating, And presented hallucination as well. Pt has been unable to stand or ambulate due to severe pain. She is bed-b ound now. When Patient was in the ER waiting social work for her replacement, Patient developed hypoxia. She has required oxygen supplement to support her O2 sats. CT of lumbar spinal show patient had progressively compression deformity at L1, one of etiology be pathological fracture, pt had hx of breast cancer. MRI of the spine can help clarify the etiology but pt's daughter declined the service because of pt's past terrified Claustrophobia. CTA of chest show A large right side pulmonary embolus and moderate left side pulmonary emboli, CT evidence of right heart strain, 1.6cm upper lobe subsolid nodule. Patient's daughter declined patient be transferred to higher level care because of pt's evidence of right heart strain at ER. I also discussed the care plan with the patient's daughter at bedside. she would like to focus on pt's pain control, comfortable care, continue to treat her mother's PE with blood thinner on today. She will discuss with her brother, and will likely choose hospice care for her mother on tomorrow. Her daughter confirm Pt's code status is DNR/DNI. - CONSULTS | PROCEDURES Consultations: Hospice, Social Work - HOSPITAL COURSE Hospital Course: The patient was admitted to the floor for acute saddle pulmonary embolism. She only had a mild elevation in her troponin and BNP. There was evidence of right heart strain on his imaging but an echocardiogram was not obtained as family had made it clear they do not want any aggressive measures or transfer to a higher level of care. She was started on Lovenox initially. The following day, family decided to transition to comfort care given the patient had been declining over the past few weeks due to her advanced dementia and has had limited oral intake and failure to thrive. They agreed to discontinuing anticoagulation and all IV fluids with the focus on comfort. The patient was treated with morphine, Haldol as needed. Hospice was consulted and they agreed the patient was appropriate for hospice. The family was able to set of caregivers at home and a hospital bed was delivered this morning. The patient is discharged home in 4 condition and will be admitted by hospice this afternoon. - ALLERGIES Allergies/Adverse Reactions: Allergies Allergy/AdvReac Type Severity Reaction Status Date / Time acetaminophen Allergy Unknown Verified 05/11/20 18:35 [From Darvocet-N] cephalexin monohydrate * Allergy Unknown Verified 05/11/20 18:35 [From Keflex] diazepam Allergy Unknown Verified 05/11/20 18:35 erythromycin base Allergy Unknown Verified 05/11/20 18:35 levofloxacin [From Levaquin] Allergy Unknown Verified 05/12/20 11:00 Penicillins Allergy Unknown Verified 05/11/20 18:35 petrolatum,white Allergy Unknown Verified 05/11/20 18:35 [From Petroleum Jelly] prednisone Allergy Unknown Verified 05/11/20 18:35 propoxyphene napsylate * Allergy Unknown Verified 05/11/20 18:35 [From Darvocet-N] Sulfa (Sulfonamide Allergy Unknown Verified 05/11/20 18:35 Antibiotics) suture Allergy Unknown Verified 05/13/20 12:23 - MEDICATIONS Home Medications: Ambulatory Orders Medication Instructions Recorded Confirmed Acetaminophen [Tylenol] 325 mg PO BID 05/11/20 05/11/20 Cholecalciferol (Vitamin D3) 50 mcg PO DAILY 05/12/20 05/12/20 [Vitamin D3] Docusate Sodium 100Mg Capsule 100 mg PO BID 05/12/20 05/12/20 [Colace 100Mg Capsule] Escitalopram Oxalate 20 mg PO DAILY 05/12/20 05/12/20 Multivitamin 1 tab PO DAILY 05/12/20 05/12/20 Senna [Senokot] 8.6 mg PO BID PRN 05/12/20 05/12/20 oxyCODONE [Roxicodone] 5 mg PO Q6H PRN 05/12/20 05/12/20 - LABS Result Diagrams: 05/13/20 04:25 05/14/20 09:15 - SEPSIS Current Stage of Sepsis: Ruled out - FOLLOW UP Follow Up: She will be followed up by hospice this afternoon. - TIME SPENT Time Spent in Discharge (Minutes): 31"
[2020-05-15] MEDS: GLYCOPYRROLATE 1 MG/5 ML VIAL SUBQ PRN (17:35)
[2020-05-16] MEDS: MORPHINE SOL 10 MG/0.5 ML ORAL SYRINGE PO PRN ×7 (02:08→22:04)
[2020-05-16] MEDS: SODIUM CHLORIDE FLUSH 0.9% 10 ML SYRINGE IVP SCH ×3 (03:00→21:57)
[2020-05-16] MEDS: SODIUM CHLORIDE FLUSH 0.9% 10 ML SYRINGE IVP PRN (03:02)
[2020-05-16] MEDS: LORazepam 2 MG/ML VIAL IVP PRN ×2 (03:02→08:52)
[2020-05-16] MEDS: GLYCOPYRROLATE 1 MG/5 ML VIAL SUBQ PRN ×2 (09:57→13:58)
[2020-05-16] MEDS ORDERED: HALOPERIDOL 10 MG/5 ML UDC PO PRN (10:34)
[2020-05-16] MEDS ORDERED: SCOPOLAMINE PATCH TOP SCH (11:00)
--- NOTE | 2020-05-16 12:23 | PROVIDER PROGRESS NOTE ---
Subjective - Prog Note Date Prog Note Date: 05/16/20 - Subjective Subjective: Daughter is present at bedside. Patient appears comfortable at bedside. She is progressively becoming less responsive. Current Medications - Current Medications Current Medications: Active Medications Acetaminophen (Acetaminophen 325 Mg Tablet) 650 mg PO Q4HR PRN PRN Reason: Pain 1 to 4 Last Admin: 05/13/20 20:52 Dose: 650 mg Documented by: Glycopyrrolate (Glycopyrrolate 1 Mg/5 Ml Vial) 0.2 mg SUBQ Q4H PRN PRN Reason: Excessive secretions Last Admin: 05/16/20 09:57 Dose: 0.2 mg Documented by: Haloperidol (Haloperidol 10 Mg/5 Ml Udc) 1 mg PO Q4HR PRN PRN Reason: Agitation Lorazepam (Lorazepam 1 Mg Tablet) 1 mg SL Q6H PRN PRN Reason: Anxiety Morphine Sulfate (Morphine 2 Mg/Ml Carpuject) 2 mg IVP Q30M PRN PRN Reason: NEEDED PER PROVIDER ORDERS Last Admin: 05/15/20 08:58 Dose: 2 mg Documented by: Morphine Sulfate (Morphine Nicole 10 Mg/0.5 Ml Oral Syringe) 5 mg PO Q2HR PRN PRN Reason: PAIN Last Admin: 05/16/20 11:28 Dose: 5 mg Documented by: Ondansetron HCl (Ondansetron 4 Mg/2 Ml Vial) 4 mg IVP Q6HR PRN PRN Reason: Nausea / Vomiting Scopolamine HBr (Scopolamine Patch) 1 patch TOP Q3D [facility] Last Admin: 05/16/20 11:27 Dose: 1 patch Documented by: Sodium Chloride (Sodium Chloride Flush 0.9% 10 Ml Syringe) 10 ml IVP PRN PRN PRN Reason: NEEDED PER PROVIDER ORDERS Last Admin: 05/16/20 03:02 Dose: 10 ml Documented by: Sodium Chloride (Sodium Chloride Flush 0.9% 10 Ml Syringe) 10 ml IVP 0100,0900,1700 [facility] Last Admin: 05/16/20 08:56 Dose: 10 ml Documented by: Acetaminophen [Tylenol] 325 mg PO BID 05/11/20 Cholecalciferol (Vitamin D3) [Vitamin D3] 50 mcg PO DAILY 05/12/20 Docusate Sodium 100Mg Capsule [Colace 100Mg Capsule] 100 mg PO BID 05/12/20 Escitalopram Oxalate 20 mg PO DAILY 05/12/20 Multivitamin 1 tab PO DAILY 05/12/20 Senna [Senokot] 8.6 mg PO BID PRN 05/12/20 oxyCODONE [Roxicodone] 5 mg PO Q6H PRN 05/12/20 Objective - Vital Signs/Intake & Output Reviewed Vital Signs: Yes Intake & Output: Intake & Output 05/13/20 05/14/20 05/15/20 05/16/20 23:59 23:59 23:59 23:59 Intake Total 2230.001 1899.663 50 Output Total 700 3525 800 200 Balance 1530.001 -1625.337 -800 -150 - Objective General Appearance: positive: Other (She appears comfortable. She will attempt to open her eyes at times but is minimally responsive for the most part) ENT: positive: ENT inspection nml Respiratory: positive: No respiratory distress Cardiovascular: positive: Tachycardia - Lab Results Fish Bones: 05/13/20 04:25 05/14/20 09:15 ABX Reporting Has patient been on IV antibiotics over the past 48 hours?: No Sepsis Event Note (H) - Evaluation Current Stage of Sepsis: Ruled out Assessment/Plan - Problem List (1) Acute saddle pulmonary embolism Impression: This was present on admission. Family decided to focus on comfort care. Lovenox has been discontinued since the second day of hospitalization. The plan was to discharge her home today on hospice but the patient appears to be imminently dying. I spoke with Dr. Brownlee of hospice and given the concern that the patient may on transport to home or shortly after, she will remain hospitalized. We will continue with morphine, Ativan, Haldol as needed. I did order scopolamine patch to help control secretions. Appreciate hospice input. (2) Need for comfort care Impression: Plan is as mentioned above, she remained hospitalized given she is imminently dying. Continue with Roxanol, Ativan, Haldol as needed. (3) Compression fx, lumbar spine Impression: This was concerning for pathologic fracture. The goal is comfort and we will continue pain control with morphine. (4) Failure to thrive Impression: We are focusing on her comfort at this time. (5) Advanced dementia Impression: The goal is to ensure that she is comfortable as mentioned above.
[2020-05-16] MEDS: LORazepam 1 MG TABLET SL PRN ×2 (13:34→19:41)
[2020-05-17] MEDS: MORPHINE SOL 10 MG/0.5 ML ORAL SYRINGE PO PRN ×5 (03:58→20:46)
[2020-05-17] MEDS: SODIUM CHLORIDE FLUSH 0.9% 10 ML SYRINGE IVP SCH ×3 (06:38→17:52)
[2020-05-17] MEDS: MORPHINE 2 MG/ML CARPUJECT IVP PRN (09:08)
--- NOTE | 2020-05-17 11:43 | PROVIDER PROGRESS NOTE ---
Assessment/Plan - Problem List (1) Pulmonary emboli Assessment/Plan: (1) Acute saddle pulmonary embolism 05/17 This was present on admission. Family decided to focus on comfort care only with hospice care, and requested to d/c Lovenox since the second day of hospitalization. Pt is at the hospital for imminent status now. (2)imminent 05/17, pt is unresponsive, pt seems comfortable at the bed. Meet with the patient's daughter at the bedside, she hope continue comfortable measure only for pt. Pt has rapid breathing with unresponsive, she has signs of approaching . At this Moment, we will focus on comfortable management as pt's family wishes, and focus on the quality of her life. Continue with Roxanol, Ativan, Haldol as needed. (3) Advanced dementia 05.17 as pt's hx. The goal is to ensure that she is comfortable as mentioned above. (4) comfort care only status 05/17 as pt's family's wishes with comfort care only status, she remained hospitalized given she is imminently dying. Continue with Roxanol, Ativan, Haldol as needed. (5) Compression fx, lumbar spine 05/17 This was concerning for pathologic fracture. The goal is focus on comfort and we will continue pain control with morphine. (6) Failure to thrive 05/17 pt refused to eat in the admission and at hospitalization, and at her home. We are focusing on her comfort at this time. - Current Meds Current Meds: Current Medications Generic Name Dose Route Start Last Admin Trade Name Freq PRN Reason Stop Dose Admin Acetaminophen 650 mg 05/12/20 10:35 05/13/20 20:52 Acetaminophen 325 Mg Tablet PO 650 mg Q4HR PRN Administration Pain 1 to 4 Glycopyrrolate 0.2 mg 05/15/20 17:22 05/16/20 13:58 Glycopyrrolate 1 Mg/5 Ml Vial SUBQ 0.2 mg Q4H PRN Administration Excessive secretions Haloperidol 1 mg 05/16/20 10:34 05/16/20 14:32 Haloperidol 10 Mg/5 Ml Udc PO 1 mg Q4HR PRN Administration Agitation Lorazepam 1 mg 05/16/20 10:42 05/16/20 19:41 Lorazepam 1 Mg Tablet SL 1 mg Q6H PRN Administration Anxiety Morphine Sulfate 2 mg 05/14/20 09:31 05/17/20 09:08 Morphine 2 Mg/Ml Carpuject IVP 2 mg Q30M PRN Administration NEEDED PER PROVIDER ORDERS Morphine Sulfate 5 mg 05/15/20 09:19 05/17/20 03:58 Morphine Nicole 10 Mg/0.5 Ml Oral Syringe PO 5 mg Q2HR PRN Administration PAIN Scopolamine HBr 1 patch 05/16/20 11:00 05/16/20 11:27 Scopolamine Patch TOP 1 patch Q3D SHANE Administration Sodium Chloride 10 ml 05/12/20 10:35 05/16/20 03:02 Sodium Chloride Flush 0.9% 10 Ml Syringe IVP 10 ml PRN PRN Administration NEEDED PER PROVIDER ORDERS Sodium Chloride 10 ml 05/12/20 17:00 05/17/20 06:38 Sodium Chloride Flush 0.9% 10 Ml Syringe IVP Not Given 0100,0900,1700 SHANE - Lab Result Fish Bone Diagrams: 05/13/20 04:25 05/14/20 09:15 Subjective - Subjective Patient Reports: Resting Comfortably Objective Vital Signs: Vital Signs - 24 hr 05/16/20 15:55 Temperature 37.2 C Heart Rate [ 110 H Brachial] Respiratory 83 H Rate Blood Pressure 118/59 L [Right Brachial artery] O2 Saturation 20 L Oxygen O2 Source Room air Oxygen Flow Rate 2 I&O (Last 24 Hrs): Intake and Output Totals x24h 05/15/20 05/16/20 05/17/20 23:59 23:59 23:59 Intake Total 50 Output Total 800 550 15 Balance -800 -500 -15 General: No acute distress HEENT: Atraumatic Neck: Supple Lymphatic: no adenopathy Neuro: Other (unresponsive) Cardiovascular: Other (tachycardia) Respiratory: Chest non-tender, Other (tachypnea) Abdomen: Soft - Results Results: Laboratory Results WBC 7.3 x10^3/uL (4.8-10.8) 05/13/20 04:25 RBC 4.45 10^6/uL (4.20-5.40) 05/13/20 04:25 Hgb 13.8 g/dL (12.0-16.0) 05/13/20 04:25 Hct 43.0 % (37.0-47.0) 05/13/20 04:25 MCV 96.6 fL (81.0-99.0) 05/13/20 04:25 MCH 31.0 pg (27.0-31.0) 05/13/20 04:25 MCHC 32.1 g/dL (32.0-36.0) 05/13/20 04:25 RDW 14.8 % (12.0-15.0) 05/13/20 04:25 Plt Count 311 10^3/uL (130-450) 05/13/20 04:25 MPV 10.5 fL (7.9-10.8) 05/13/20 04:25 Neut # (Auto) 4.8 10^3/uL (1.5-6.6) 05/13/20 04:25 Lymph # (Auto) 1.4 10^3/uL (1.5-3.5) L 05/13/20 04:25 [place] # (Auto) 0.7 10^3/uL (0.0-1.0) 05/13/20 04:25 Eos # (Auto) 0.2 10^3/uL (0.0-0.7) 05/13/20 04:25 Baso # (Auto) 0.1 10^3/uL (0.0-0.1) 05/13/20 04:25 Absolute Nucleated RBC 0.00 x10^3/uL 05/13/20 04:25 Nucleated RBC % 0.0 /100WBC 05/13/20 04:25 Sodium 139 mmol/L (135-145) 05/13/20 04:25 Potassium 4.1 mmol/L (3.5-5.0) 05/14/20 09:15 Chloride 106 mmol/L (101-111) 05/13/20 04:25 Carbon Dioxide 26 mmol/L (21-32) 05/13/20 04:25 Anion Gap 7.0 (6-13) 05/13/20 04:25 BUN 7 mg/dL (6-20) 05/13/20 04:25 Creatinine 0.4 mg/dL (0.4-1.0) 05/13/20 04:25 Estimated GFR (MDRD) 151 (>89) 05/13/20 04:25 Glucose 106 mg/dL (70-100) H 05/13/20 04:25 Calcium 8.8 mg/dL (8.5-10.3) 05/13/20 04:25 Total Bilirubin 1.6 mg/dL (0.2-1.0) H 05/11/20 19:15 AST 25 IU/L (10-42) 05/11/20 19:15 ALT 21 IU/L (10-60) 05/11/20 19:15 Alkaline Phosphatase 85 IU/L (42-121) 05/11/20 19:15 Troponin I High Sens 31.8 ng/L (2.3-14.8) H* 05/12/20 15:10 B-Natriuretic Peptide 195 pg/mL (5-100) H 05/12/20 09:27 Total Protein 6.1 g/dL (6.7-8.2) L 05/11/20 19:15 Albumin 3.7 g/dL (3.2-5.5) 05/11/20 19:15 Globulin 2.4 g/dL (2.1-4.2) 05/11/20 19:15 Albumin/Globulin Ratio 1.5 (1.0-2.2) 05/11/20 19:15 Lipase 21 U/L (22-51) L 05/11/20 19:15 Urine Color YELLOW 05/11/20 20:44 Urine Clarity CLEAR (CLEAR) 05/11/20 20:44 Urine pH 6.0 PH (5.0-7.5) 05/11/20 20:44 Ur Specific [place] >=1.030 (1.002-1.030) H 05/11/20 20:44 Urine Protein NEGATIVE mg/dL (NEGATIVE) 05/11/20 20:44 Urine Glucose (UA) NEGATIVE mg/dL (NEGATIVE) 05/11/20 20:44 Urine Ketones >=80 mg/dL (NEGATIVE) H 05/11/20 20:44 Urine Occult Blood NEGATIVE (NEGATIVE) 05/11/20 20:44 Urine Nitrite NEGATIVE (NEGATIVE) 05/11/20 20:44 Urine Bilirubin NEGATIVE (NEGATIVE) 05/11/20 20:44 Urine Urobilinogen 2 E.U./dL (NORMAL) H 05/11/20 20:44 Ur Leukocyte Esterase NEGATIVE (NEGATIVE) 05/11/20 20:44 Ur Microscopic Review NOT INDICATED 05/11/20 20:44 Urine Culture Comments NOT INDICATED 05/11/20 20:44 Nasal Adenovirus (PCR) NOT DETECTED 05/12/20 07:30 Nasal B. parapertussis DNA (PCR) NOT DETECTED 05/12/20 07:30 Nasal Coronavir 229E PCR NOT DETECTED 05/12/20 07:30 Nasal Coronavir HKU1 PCR NOT DETECTED 05/12/20 07:30 Nasal Coronavir NL63 PCR NOT DETECTED 05/12/20 07:30 Nasal Coronavir OC43 PCR NOT DETECTED 05/12/20 07:30 Nasal Enterovir/Rhinovir PCR NOT DETECTED 05/12/20 07:30 Nasal Influenza B PCR NOT DETECTED 05/12/20 07:30 Nasal Influenza A PCR NOT DETECTED 05/12/20 07:30 Nasal Parainfluen 1 PCR NOT DETECTED 05/12/20 07:30 Nasal Parainfluen 2 PCR NOT DETECTED 05/12/20 07:30 Nasal Parainfluen 3 PCR NOT DETECTED 05/12/20 07:30 Nasal Parainfluen 4 PCR NOT DETECTED 05/12/20 07:30 Nasal RSV (PCR) NOT DETECTED 05/12/20 07:30 Nasal B.pertussis DNA PCR NOT DETECTED 05/12/20 07:30 Nasal C.pneumoniae (PCR) NOT DETECTED 05/12/20 07:30 Addi Human Metapneumo PCR NOT DETECTED 05/12/20 07:30 Nasal M.pneumoniae (PCR) NOT DETECTED 05/12/20 07:30 Nasal SARS-CoV-2 (PCR) NOT DETECTED 05/12/20 07:30 Sepsis Event Note (H) - Evaluation Current Stage of Sepsis: Ruled out ABX Reporting Has patient been on IV antibiotics over the past 48 hours?: No Current Medications - Current Medications Current Medications: Active Medications Acetaminophen (Acetaminophen 325 Mg Tablet) 650 mg PO Q4HR PRN PRN Reason: Pain 1 to 4 Last Admin: 05/13/20 20:52 Dose: 650 mg Documented by: Glycopyrrolate (Glycopyrrolate 1 Mg/5 Ml Vial) 0.2 mg SUBQ Q4H PRN PRN Reason: Excessive secretions Last Admin: 05/16/20 13:58 Dose: 0.2 mg Documented by: Haloperidol (Haloperidol 10 Mg/5 Ml Udc) 1 mg PO Q4HR PRN PRN Reason: Agitation Last Admin: 05/16/20 14:32 Dose: 1 mg Documented by: Lorazepam (Lorazepam 1 Mg Tablet) 1 mg SL Q6H PRN PRN Reason: Anxiety Last Admin: 05/16/20 19:41 Dose: 1 mg Documented by: Morphine Sulfate (Morphine 2 Mg/Ml Carpuject) 2 mg IVP Q30M PRN PRN Reason: NEEDED PER PROVIDER ORDERS Last Admin: 05/17/20 09:08 Dose: 2 mg Documented by: Morphine Sulfate (Morphine Nicole 10 Mg/0.5 Ml Oral Syringe) 5 mg PO Q2HR PRN PRN Reason: PAIN Last Admin: 05/17/20 11:46 Dose: 5 mg Documented by: Ondansetron HCl (Ondansetron 4 Mg/2 Ml Vial) 4 mg IVP Q6HR PRN PRN Reason: Nausea / Vomiting Scopolamine HBr (Scopolamine Patch) 1 patch TOP Q3D [facility] Last Admin: 05/16/20 11:27 Dose: 1 patch Documented by: Sodium Chloride (Sodium Chloride Flush 0.9% 10 Ml Syringe) 10 ml IVP PRN PRN PRN Reason: NEEDED PER PROVIDER ORDERS Last Admin: 05/16/20 03:02 Dose: 10 ml Documented by: Sodium Chloride (Sodium Chloride Flush 0.9% 10 Ml Syringe) 10 ml IVP 0100,0900,1700 [facility] Last Admin: 05/17/20 11:48 Dose: Not Given Documented by: Acetaminophen [Tylenol] 325 mg PO BID 05/11/20 Cholecalciferol (Vitamin D3) [Vitamin D3] 50 mcg PO DAILY 05/12/20 Docusate Sodium 100Mg Capsule [Colace 100Mg Capsule] 100 mg PO BID 05/12/20 Escitalopram Oxalate 20 mg PO DAILY 05/12/20 Multivitamin 1 tab PO DAILY 05/12/20 Senna [Senokot] 8.6 mg PO BID PRN 05/12/20 oxyCODONE [Roxicodone] 5 mg PO Q6H PRN 05/12/20
[2020-05-18] MEDS: MORPHINE SOL 10 MG/0.5 ML ORAL SYRINGE PO PRN ×6 (06:01→20:19)
[2020-05-18] MEDS: SODIUM CHLORIDE FLUSH 0.9% 10 ML SYRINGE IVP SCH ×3 (06:20→18:15)
--- NOTE | 2020-05-18 14:08 | PROVIDER PROGRESS NOTE ---
Assessment/Plan - Problem List (1) Pulmonary emboli Assessment/Plan: 05/18 pt present light shallow breathing. pt appear comfortable. pt's daughter is at the bedside. continue Comfortable measure only 05/17 This was present on admission. Family decided to focus on comfort care only with hospice care, and requested to d/c Lovenox since the second day of hospitalization. Pt is at the hospital for imminent status now. (2)imminent 05/18 pt show very shallow breathing, pt might be close to , pt seems comfortable, continue comfort care only status. 05/17, pt is unresponsive, pt seems comfortable at the bed. Meet with the patient's daughter at the bedside, she hope continue comfortable measure only for pt. Pt has rapid breathing with unresponsive, she has signs of approaching . At this Moment, we will focus on comfortable management as pt's family wi shes, and focus on the quality of her life. Continue with Roxanol, Ativan, Haldol as needed. (3) Advanced dementia 05.17 as pt's hx. The goal is to ensure that she is comfortable as mentioned above. (4) comfort care only status 05/17 as pt's family's wishes with comfort care only status, she remained hospitalized given she is imminently dying. Continue with Roxanol, Ativan, Haldol as needed. (5) Compression fx, lumbar spine 05/17 This was concerning for pathologic fracture. The goal is focus on comfort and we will continue pain control with morphine. (6) Failure to thrive 05/17 pt refused to eat in the admission and at hospitalization, and at her home. We are focusing on her comfort at this time. - Current Meds Current Meds: Current Medications Generic Name Dose Route Start Last Admin Trade Name Freq PRN Reason Stop Dose Admin Acetaminophen 650 mg 05/12/20 10:35 05/13/20 20:52 Acetaminophen 325 Mg Tablet PO 650 mg Q4HR PRN Administration Pain 1 to 4 Glycopyrrolate 0.2 mg 05/15/20 17:22 05/16/20 13:58 Glycopyrrolate 1 Mg/5 Ml Vial SUBQ 0.2 mg Q4H PRN Administration Excessive secretions Haloperidol 1 mg 05/16/20 10:34 05/16/20 14:32 Haloperidol 10 Mg/5 Ml Udc PO 1 mg Q4HR PRN Administration Agitation Lorazepam 1 mg 05/16/20 10:42 05/16/20 19:41 Lorazepam 1 Mg Tablet SL 1 mg Q6H PRN Administration Anxiety Morphine Sulfate 2 mg 05/14/20 09:31 05/17/20 09:08 Morphine 2 Mg/Ml Carpuject IVP 2 mg Q30M PRN Administration NEEDED PER PROVIDER ORDERS Morphine Sulfate 5 mg 05/15/20 09:19 05/18/20 12:14 Morphine Nicole 10 Mg/0.5 Ml Oral Syringe PO 5 mg Q2HR PRN Administration PAIN Sodium Chloride 10 ml 05/12/20 10:35 05/16/20 03:02 Sodium Chloride Flush 0.9% 10 Ml Syringe IVP 10 ml PRN PRN Administration NEEDED PER PROVIDER ORDERS Sodium Chloride 10 ml 05/12/20 17:00 05/18/20 09:02 Sodium Chloride Flush 0.9% 10 Ml Syringe IVP 10 ml 0100,0900,1700 SHANE Administration - Lab Result Fish Bone Diagrams: 05/13/20 04:25 05/14/20 09:15 Subjective - Subjective Patient Reports: Resting Comfortably Objective Vital Signs: Vital Signs - 24 hr 05/18/20 05/18/20 05/18/20 00:08 01:16 11:30 Temperature 36.4 C L Heart Rate [ 113 H Brachial] Respiratory 10 L 10 L 16 Rate Blood Pressure 92/51 L [Right Brachial artery] O2 Saturation 71 L Oxygen O2 Source Room air Oxygen Flow Rate 2 I&O (Last 24 Hrs): Intake and Output Totals x24h 05/16/20 05/17/20 05/18/20 23:59 23:59 23:59 Intake Total 50 Output Total 550 80 12 Balance -500 -80 -12 General: Other (lethargy) HEENT: Atraumatic Neck: Supple Lymphatic: no adenopathy Neuro: Alert Cardiovascular: Regular rate Respiratory: Chest non-tender Abdomen: Soft - Results Results: Laboratory Results WBC 7.3 x10^3/uL (4.8-10.8) 05/13/20 04:25 RBC 4.45 10^6/uL (4.20-5.40) 05/13/20 04:25 Hgb 13.8 g/dL (12.0-16.0) 05/13/20 04:25 Hct 43.0 % (37.0-47.0) 05/13/20 04:25 MCV 96.6 fL (81.0-99.0) 05/13/20 04:25 MCH 31.0 pg (27.0-31.0) 05/13/20 04:25 MCHC 32.1 g/dL (32.0-36.0) 05/13/20 04:25 RDW 14.8 % (12.0-15.0) 05/13/20 04:25 Plt Count 311 10^3/uL (130-450) 05/13/20 04:25 MPV 10.5 fL (7.9-10.8) 05/13/20 04:25 Neut # (Auto) 4.8 10^3/uL (1.5-6.6) 05/13/20 04:25 Lymph # (Auto) 1.4 10^3/uL (1.5-3.5) L 05/13/20 04:25 [place] # (Auto) 0.7 10^3/uL (0.0-1.0) 05/13/20 04:25 Eos # (Auto) 0.2 10^3/uL (0.0-0.7) 05/13/20 04:25 Baso # (Auto) 0.1 10^3/uL (0.0-0.1) 05/13/20 04:25 Absolute Nucleated RBC 0.00 x10^3/uL 05/13/20 04:25 Nucleated RBC % 0.0 /100WBC 05/13/20 04:25 Sodium 139 mmol/L (135-145) 05/13/20 04:25 Potassium 4.1 mmol/L (3.5-5.0) 05/14/20 09:15 Chloride 106 mmol/L (101-111) 05/13/20 04:25 Carbon Dioxide 26 mmol/L (21-32) 05/13/20 04:25 Anion Gap 7.0 (6-13) 05/13/20 04:25 BUN 7 mg/dL (6-20) 05/13/20 04:25 Creatinine 0.4 mg/dL (0.4-1.0) 05/13/20 04:25 Estimated GFR (MDRD) 151 (>89) 05/13/20 04:25 Glucose 106 mg/dL (70-100) H 05/13/20 04:25 Calcium 8.8 mg/dL (8.5-10.3) 05/13/20 04:25 Total Bilirubin 1.6 mg/dL (0.2-1.0) H 05/11/20 19:15 AST 25 IU/L (10-42) 05/11/20 19:15 ALT 21 IU/L (10-60) 05/11/20 19:15 Alkaline Phosphatase 85 IU/L (42-121) 05/11/20 19:15 Troponin I High Sens 31.8 ng/L (2.3-14.8) H* 05/12/20 15:10 B-Natriuretic Peptide 195 pg/mL (5-100) H 05/12/20 09:27 Total Protein 6.1 g/dL (6.7-8.2) L 05/11/20 19:15 Albumin 3.7 g/dL (3.2-5.5) 05/11/20 19:15 Globulin 2.4 g/dL (2.1-4.2) 05/11/20 19:15 Albumin/Globulin Ratio 1.5 (1.0-2.2) 05/11/20 19:15 Lipase 21 U/L (22-51) L 05/11/20 19:15 Urine Color YELLOW 05/11/20 20:44 Urine Clarity CLEAR (CLEAR) 05/11/20 20:44 Urine pH 6.0 PH (5.0-7.5) 05/11/20 20:44 Ur Specific [place] >=1.030 (1.002-1.030) H 05/11/20 20:44 Urine Protein NEGATIVE mg/dL (NEGATIVE) 05/11/20 20:44 Urine Glucose (UA) NEGATIVE mg/dL (NEGATIVE) 05/11/20 20:44 Urine Ketones >=80 mg/dL (NEGATIVE) H 05/11/20 20:44 Urine Occult Blood NEGATIVE (NEGATIVE) 05/11/20 20:44 Urine Nitrite NEGATIVE (NEGATIVE) 05/11/20 20:44 Urine Bilirubin NEGATIVE (NEGATIVE) 05/11/20 20:44 Urine Urobilinogen 2 E.U./dL (NORMAL) H 05/11/20 20:44 Ur Leukocyte Esterase NEGATIVE (NEGATIVE) 05/11/20 20:44 Ur Microscopic Review NOT INDICATED 05/11/20 20:44 Urine Culture Comments NOT INDICATED 05/11/20 20:44 Nasal Adenovirus (PCR) NOT DETECTED 05/12/20 07:30 Nasal B. parapertussis DNA (PCR) NOT DETECTED 05/12/20 07:30 Nasal Coronavir 229E PCR NOT DETECTED 05/12/20 07:30 Nasal Coronavir HKU1 PCR NOT DETECTED 05/12/20 07:30 Nasal Coronavir NL63 PCR NOT DETECTED 05/12/20 07:30 Nasal Coronavir OC43 PCR NOT DETECTED 05/12/20 07:30 Nasal Enterovir/Rhinovir PCR NOT DETECTED 05/12/20 07:30 Nasal Influenza B PCR NOT DETECTED 05/12/20 07:30 Nasal Influenza A PCR NOT DETECTED 05/12/20 07:30 Nasal Parainfluen 1 PCR NOT DETECTED 05/12/20 07:30 Nasal Parainfluen 2 PCR NOT DETECTED 05/12/20 07:30 Nasal Parainfluen 3 PCR NOT DETECTED 05/12/20 07:30 Nasal Parainfluen 4 PCR NOT DETECTED 05/12/20 07:30 Nasal RSV (PCR) NOT DETECTED 05/12/20 07:30 Nasal B.pertussis DNA PCR NOT DETECTED 05/12/20 07:30 Nasal C.pneumoniae (PCR) NOT DETECTED 05/12/20 07:30 Addi Human Metapneumo PCR NOT DETECTED 05/12/20 07:30 Nasal M.pneumoniae (PCR) NOT DETECTED 05/12/20 07:30 Nasal SARS-CoV-2 (PCR) NOT DETECTED 05/12/20 07:30 Sepsis Event Note (H) - Evaluation Current Stage of Sepsis: Ruled out ABX Reporting Has patient been on IV antibiotics over the past 48 hours?: No Current Medications - Current Medications Current Medications: Active Medications Acetaminophen (Acetaminophen 325 Mg Tablet) 650 mg PO Q4HR PRN PRN Reason: Pain 1 to 4 Last Admin: 05/13/20 20:52 Dose: 650 mg Documented by: Glycopyrrolate (Glycopyrrolate 1 Mg/5 Ml Vial) 0.2 mg SUBQ Q4H PRN PRN Reason: Excessive secretions Last Admin: 05/16/20 13:58 Dose: 0.2 mg Documented by: Haloperidol (Haloperidol 10 Mg/5 Ml Udc) 1 mg PO Q4HR PRN PRN Reason: Agitation Last Admin: 05/16/20 14:32 Dose: 1 mg Documented by: Lorazepam (Lorazepam 1 Mg Tablet) 1 mg SL Q6H PRN PRN Reason: Anxiety Last Admin: 05/16/20 19:41 Dose: 1 mg Documented by: Morphine Sulfate (Morphine 2 Mg/Ml Carpuject) 2 mg IVP Q30M PRN PRN Reason: NEEDED PER PROVIDER ORDERS Last Admin: 05/17/20 09:08 Dose: 2 mg Documented by: Morphine Sulfate (Morphine Nicole 10 Mg/0.5 Ml Oral Syringe) 5 mg PO Q2HR PRN PRN Reason: PAIN Last Admin: 05/18/20 12:14 Dose: 5 mg Documented by: Ondansetron HCl (Ondansetron 4 Mg/2 Ml Vial) 4 mg IVP Q6HR PRN PRN Reason: Nausea / Vomiting Sodium Chloride (Sodium Chloride Flush 0.9% 10 Ml Syringe) 10 ml IVP PRN PRN PRN Reason: NEEDED PER PROVIDER ORDERS Last Admin: 05/16/20 03:02 Dose: 10 ml Documented by: Sodium Chloride (Sodium Chloride Flush 0.9% 10 Ml Syringe) 10 ml IVP 0100,0900,1700 SHANE Last Admin: 05/18/20 09:02 Dose: 10 ml Documented by: Acetaminophen [Tylenol] 325 mg PO BID 05/11/20 Cholecalciferol (Vitamin D3) [Vitamin D3] 50 mcg PO DAILY 05/12/20 Docusate Sodium 100Mg Capsule [Colace 100Mg Capsule] 100 mg PO BID 05/12/20 Escitalopram Oxalate 20 mg PO DAILY 05/12/20 Multivitamin 1 tab PO DAILY 05/12/20 Senna [Senokot] 8.6 mg PO BID PRN 05/12/20 oxyCODONE [Roxicodone] 5 mg PO Q6H PRN 05/12/20
[2020-05-19] MEDS: MORPHINE SOL 10 MG/0.5 ML ORAL SYRINGE PO PRN ×3 (00:08→21:52)
[2020-05-19 08:42] VITALS: BP 102/57
--- NOTE | 2020-05-19 13:50 | PROVIDER PROGRESS NOTE ---
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 pt's daughter otherwise is always in the bedside. continue Morphine and Ativan, haloperidol as needed. 05/18 pt present light shallow breathing. pt appear comfortable. pt's daughter is at the bedside. continue Comfortable measure only 05/17 This was present on admission. Family decided to focus on comfort care only with hospice care, and requested to d/c Lovenox since the second day of hospitalization. Pt is at the hospital for imminent status now. (2)end of life care 05/19 continue end of life care, focus on pt's comfort. continue Morphine, haloperidol and Ativan as needed. 05/18 pt show very shallow breathing, pt might be close to , pt seems comfortable, continue comfort care only status. 05/17, pt is unresponsive, pt seems comfortable at the bed. Meet with the patient's daughter at the bedside, she hope continue comfortable measure only for pt. Pt has rapid breathing with unresponsive, she has signs of approaching . At this Moment, we will focus on comfortable management as pt's family wishes, and focus on the quality of her life. Continue with Roxanol, Ativan, Haldol as needed. (3) Advanced dementia 05.17 as pt's hx. The goal is to ensure that she is comfortable as mentioned above. (4) comfort care only status 05/17 as pt's family's wishes with comfort care only status, she remained hospitalized given she is imminently dying. Continue with Roxanol, Ativan, Haldol as needed. (5) Compression fx, lumbar spine 05/17 This was concerning for pathologic fracture. The goal is focus on comfort and we will continue pain control with morphine. (6) Failure to thrive 05/17 pt refused to eat in the admission and at hospitalization, and at her home. We are focusing on her comfort at this time. - Current Meds Current Meds: Current Medications Generic Name Dose Route Start Last Admin Trade Name Freq PRN Reason Stop Dose Admin Acetaminophen 650 mg 05/12/20 10:35 05/13/20 20:52 Acetaminophen 325 Mg Tablet PO 650 mg Q4HR PRN Administration Pain 1 to 4 Glycopyrrolate 0.2 mg 05/15/20 17:22 05/16/20 13:58 Glycopyrrolate 1 Mg/5 Ml Vial SUBQ 0.2 mg Q4H PRN Administration Excessive secretions Haloperidol 1 mg 05/16/20 10:34 05/16/20 14:32 Haloperidol 10 Mg/5 Ml Udc PO 1 mg Q4HR PRN Administration Agitation Lorazepam 1 mg 05/16/20 10:42 05/16/20 19:41 Lorazepam 1 Mg Tablet SL 1 mg Q6H PRN Administration Anxiety Morphine Sulfate 2 mg 05/14/20 09:31 05/17/20 09:08 Morphine 2 Mg/Ml Carpuject IVP 2 mg Q30M PRN Administration NEEDED PER PROVIDER ORDERS Morphine Sulfate 5 mg 05/15/20 09:19 05/19/20 00:08 Morphine Nicole 10 Mg/0.5 Ml Oral Syringe PO 5 mg Q2HR PRN Administration PAIN Sodium Chloride 10 ml 05/12/20 10:35 05/16/20 03:02 Sodium Chloride Flush 0.9% 10 Ml Syringe IVP 10 ml PRN PRN Administration NEEDED PER PROVIDER ORDERS Sodium Chloride 10 ml 05/12/20 17:00 05/18/20 18:15 Sodium Chloride Flush 0.9% 10 Ml Syringe IVP Not Given 0100,0900,1700 SHANE - Lab Result Fish Bone Diagrams: 05/13/20 04:25 05/14/20 09:15 Subjective - Subjective Patient Reports: Resting Comfortably Objective Vital Signs: Vital Signs - 24 hr 05/19/20 08:37 Temperature 36.4 C L Heart Rate [ 112 H Brachial] Respiratory 18 Rate Blood Pressure 102/57 L [Right Brachial artery] O2 Saturation 71 L Oxygen O2 Source Room air Oxygen Flow Rate 2 I&O (Last 24 Hrs): Intake and Output Totals x24h 05/17/20 05/18/20 05/19/20 23:59 23:59 23:59 Output Total 80 62 25 Balance -80 -62 -25 General: Other (unresponse) HEENT: Atraumatic Neck: Supple Lymphatic: no adenopathy Respiratory: Other (very shallow breathing) - Results Results: Laboratory Results WBC 7.3 x10^3/uL (4.8-10.8) 05/13/20 04:25 RBC 4.45 10^6/uL (4.20-5.40) 05/13/20 04:25 Hgb 13.8 g/dL (12.0-16.0) 05/13/20 04:25 Hct 43.0 % (37.0-47.0) 05/13/20 04:25 MCV 96.6 fL (81.0-99.0) 05/13/20 04:25 MCH 31.0 pg (27.0-31.0) 05/13/20 04:25 MCHC 32.1 g/dL (32.0-36.0) 05/13/20 04:25 RDW 14.8 % (12.0-15.0) 05/13/20 04:25 Plt Count 311 10^3/uL (130-450) 05/13/20 04:25 MPV 10.5 fL (7.9-10.8) 05/13/20 04:25 Neut # (Auto) 4.8 10^3/uL (1.5-6.6) 05/13/20 04:25 Lymph # (Auto) 1.4 10^3/uL (1.5-3.5) L 05/13/20 04:25 [place] # (Auto) 0.7 10^3/uL (0.0-1.0) 05/13/20 04:25 Eos # (Auto) 0.2 10^3/uL (0.0-0.7) 05/13/20 04:25 Baso # (Auto) 0.1 10^3/uL (0.0-0.1) 05/13/20 04:25 Absolute Nucleated RBC 0.00 x10^3/uL 05/13/20 04:25 Nucleated RBC % 0.0 /100WBC 05/13/20 04:25 Sodium 139 mmol/L (135-145) 05/13/20 04:25 Potassium 4.1 mmol/L (3.5-5.0) 05/14/20 09:15 Chloride 106 mmol/L (101-111) 05/13/20 04:25 Carbon Dioxide 26 mmol/L (21-32) 05/13/20 04:25 Anion Gap 7.0 (6-13) 05/13/20 04:25 BUN 7 mg/dL (6-20) 05/13/20 04:25 Creatinine 0.4 mg/dL (0.4-1.0) 05/13/20 04:25 Estimated GFR (MDRD) 151 (>89) 05/13/20 04:25 Glucose 106 mg/dL (70-100) H 05/13/20 04:25 Calcium 8.8 mg/dL (8.5-10.3) 05/13/20 04:25 Total Bilirubin 1.6 mg/dL (0.2-1.0) H 05/11/20 19:15 AST 25 IU/L (10-42) 05/11/20 19:15 ALT 21 IU/L (10-60) 05/11/20 19:15 Alkaline Phosphatase 85 IU/L (42-121) 05/11/20 19:15 Troponin I High Sens 31.8 ng/L (2.3-14.8) H* 05/12/20 15:10 B-Natriuretic Peptide 195 pg/mL (5-100) H 05/12/20 09:27 Total Protein 6.1 g/dL (6.7-8.2) L 05/11/20 19:15 Albumin 3.7 g/dL (3.2-5.5) 05/11/20 19:15 Globulin 2.4 g/dL (2.1-4.2) 05/11/20 19:15 Albumin/Globulin Ratio 1.5 (1.0-2.2) 05/11/20 19:15 Lipase 21 U/L (22-51) L 05/11/20 19:15 Urine Color YELLOW 05/11/20 20:44 Urine Clarity CLEAR (CLEAR) 05/11/20 20:44 Urine pH 6.0 PH (5.0-7.5) 05/11/20 20:44 Ur Specific [place] >=1.030 (1.002-1.030) H 05/11/20 20:44 Urine Protein NEGATIVE mg/dL (NEGATIVE) 05/11/20 20:44 Urine Glucose (UA) NEGATIVE mg/dL (NEGATIVE) 05/11/20 20:44 Urine Ketones >=80 mg/dL (NEGATIVE) H 05/11/20 20:44 Urine Occult Blood NEGATIVE (NEGATIVE) 05/11/20 20:44 Urine Nitrite NEGATIVE (NEGATIVE) 05/11/20 20:44 Urine Bilirubin NEGATIVE (NEGATIVE) 05/11/20 20:44 Urine Urobilinogen 2 E.U./dL (NORMAL) H 05/11/20 20:44 Ur Leukocyte Esterase NEGATIVE (NEGATIVE) 05/11/20 20:44 Ur Microscopic Review NOT INDICATED 05/11/20 20:44 Urine Culture Comments NOT INDICATED 05/11/20 20:44 Nasal Adenovirus (PCR) NOT DETECTED 05/12/20 07:30 Nasal B. parapertussis DNA (PCR) NOT DETECTED 05/12/20 07:30 Nasal Coronavir 229E PCR NOT DETECTED 05/12/20 07:30 Nasal Coronavir HKU1 PCR NOT DETECTED 05/12/20 07:30 Nasal Coronavir NL63 PCR NOT DETECTED 05/12/20 07:30 Nasal Coronavir OC43 PCR NOT DETECTED 05/12/20 07:30 Nasal Enterovir/Rhinovir PCR NOT DETECTED 05/12/20 07:30 Nasal Influenza B PCR NOT DETECTED 05/12/20 07:30 Nasal Influenza A PCR NOT DETECTED 05/12/20 07:30 Nasal Parainfluen 1 PCR NOT DETECTED 05/12/20 07:30 Nasal Parainfluen 2 PCR NOT DETECTED 05/12/20 07:30 Nasal Parainfluen 3 PCR NOT DETECTED 05/12/20 07:30 Nasal Parainfluen 4 PCR NOT DETECTED 05/12/20 07:30 Nasal RSV (PCR) NOT DETECTED 05/12/20 07:30 Nasal B.pertussis DNA PCR NOT DETECTED 05/12/20 07:30 Nasal C.pneumoniae (PCR) NOT DETECTED 05/12/20 07:30 Addi Human Metapneumo PCR NOT DETECTED 05/12/20 07:30 Nasal M.pneumoniae (PCR) NOT DETECTED 05/12/20 07:30 Nasal SARS-CoV-2 (PCR) NOT DETECTED 05/12/20 07:30 Sepsis Event Note (H) - Evaluation Current Stage of Sepsis: Ruled out ABX Reporting Has patient been on IV antibiotics over the past 48 hours?: No Current Medications - Current Medications Current Medications: Active Medications Acetaminophen (Acetaminophen 325 Mg Tablet) 650 mg PO Q4HR PRN PRN Reason: Pain 1 to 4 Last Admin: 05/13/20 20:52 Dose: 650 mg Documented by: Glycopyrrolate (Glycopyrrolate 1 Mg/5 Ml Vial) 0.2 mg SUBQ Q4H PRN PRN Reason: Excessive secretions Last Admin: 05/16/20 13:58 Dose: 0.2 mg Documented by: Haloperidol (Haloperidol 10 Mg/5 Ml Udc) 1 mg PO Q4HR PRN PRN Reason: Agitation Last Admin: 05/16/20 14:32 Dose: 1 mg Documented by: Lorazepam (Lorazepam 1 Mg Tablet) 1 mg SL Q6H PRN PRN Reason: Anxiety Last Admin: 05/16/20 19:41 Dose: 1 mg Documented by: Morphine Sulfate (Morphine 2 Mg/Ml Carpuject) 2 mg IVP Q30M PRN PRN Reason: NEEDED PER PROVIDER ORDERS Last Admin: 05/17/20 09:08 Dose: 2 mg Documented by: Morphine Sulfate (Morphine Nicole 10 Mg/0.5 Ml Oral Syringe) 5 mg PO Q2HR PRN PRN Reason: PAIN Last Admin: 05/19/20 00:08 Dose: 5 mg Documented by: Ondansetron HCl (Ondansetron 4 Mg/2 Ml Vial) 4 mg IVP Q6HR PRN PRN Reason: Nausea / Vomiting Sodium Chloride (Sodium Chloride Flush 0.9% 10 Ml Syringe) 10 ml IVP PRN PRN PRN Reason: NEEDED PER PROVIDER ORDERS Last Admin: 05/16/20 03:02 Dose: 10 ml Documented by: Sodium Chloride (Sodium Chloride Flush 0.9% 10 Ml Syringe) 10 ml IVP 0100,0900,1700 SHANE Last Admin: 05/18/20 18:15 Dose: Not Given Documented by: Acetaminophen [Tylenol] 325 mg PO BID 05/11/20 Cholecalciferol (Vitamin D3) [Vitamin D3] 50 mcg PO DAILY 05/12/20 Docusate Sodium 100Mg Capsule [Colace 100Mg Capsule] 100 mg PO BID 05/12/20 Escitalopram Oxalate 20 mg PO DAILY 05/12/20 Multivitamin 1 tab PO DAILY 05/12/20 Senna [Senokot] 8.6 mg PO BID PRN 05/12/20 oxyCODONE [Roxicodone] 5 mg PO Q6H PRN 05/12/20
[2020-05-19] MEDS: SODIUM CHLORIDE FLUSH 0.9% 10 ML SYRINGE IVP SCH (17:28)
[2020-05-20] MEDS: SODIUM CHLORIDE FLUSH 0.9% 10 ML SYRINGE IVP SCH ×3 (03:39→16:42)
[2020-05-20] MEDS: MORPHINE SOL 10 MG/0.5 ML ORAL SYRINGE PO PRN ×6 (09:07→20:30)
--- NOTE | 2020-05-20 10:34 | PROVIDER PROGRESS NOTE ---
Assessment/Plan - Problem List (1) Need for comfort care Assessment/Plan: Pt was to be accepted by Hospice this past 05/16, and equipment was delivered to house. Hospice note on 05/16 stated that the patient was felt to be dying imminently, so she was not discharged to home with Hospice on that day. She has stable VS today. I called Dr Brownlee, application design engineer, and requested he re-see p atient today and he said he would. I told the daughter, who is at bedside, that Dr Brownlee will see the patient again today. Continue Roxanol, mouth care, other meds for comfort care, Sanchez, turn and reposition as needed. Will order Scopalamine patch for secretions, since sq Robinul has not been given for several days. Will order removal of saline locked iv, as the daughter requested, since the pt has not received iv meds since 05/17/20. Will stop order for saline flushes. Further recommendations awaited from Hospice service today. - Current Meds Current Meds: Current Medications Generic Name Dose Route Start Last Admin Trade Name Freq PRN Reason Stop Dose Admin Acetaminophen 650 mg 05/12/20 10:35 05/13/20 20:52 Acetaminophen 325 Mg Tablet PO 650 mg Q4HR PRN Administration Pain 1 to 4 Glycopyrrolate 0.2 mg 05/15/20 17:22 05/16/20 13:58 Glycopyrrolate 1 Mg/5 Ml Vial SUBQ 0.2 mg Q4H PRN Administration Excessive secretions Haloperidol 1 mg 05/16/20 10:34 05/16/20 14:32 Haloperidol 10 Mg/5 Ml Udc PO 1 mg Q4HR PRN Administration Agitation Lorazepam 1 mg 05/16/20 10:42 05/16/20 19:41 Lorazepam 1 Mg Tablet SL 1 mg Q6H PRN Administration Anxiety Morphine Sulfate 2 mg 05/14/20 09:31 05/17/20 09:08 Morphine 2 Mg/Ml Carpuject IVP 2 mg Q30M PRN Administration NEEDED PER PROVIDER ORDERS Morphine Sulfate 5 mg 05/15/20 09:19 05/20/20 09:07 Morphine Nicole 10 Mg/0.5 Ml Oral Syringe PO 5 mg Q2HR PRN Administration PAIN Sodium Chloride 10 ml 05/12/20 10:35 05/16/20 03:02 Sodium Chloride Flush 0.9% 10 Ml Syringe IVP 10 ml PRN PRN Administration NEEDED PER PROVIDER ORDERS Sodium Chloride 10 ml 05/12/20 17:00 05/20/20 03:39 Sodium Chloride Flush 0.9% 10 Ml Syringe IVP Not Given 0100,0900,1700 SHANE - Lab Result Fish Bone Diagrams: 05/13/20 04:25 05/14/20 09:15 - Additional Planning My Orders: My Active Orders 05/20/20 Hospice Dye Range Operator Cloth Consult [CONS] Routine 05/20/20 10:21 IV DC [IV Discontinuation] [RC] .ONCE Subjective - Subjective Patient Reports: Other (Pt moaning, calms down when HOB elevation is decreased.) Nursing Reports: Other (Daughter wants iv that is saline locked removed.) Objective Vital Signs: Oxygen O2 Source Room air Oxygen Flow Rate 2 I&O (Last 24 Hrs): Intake and Output Totals x24h 05/18/20 05/19/20 05/20/20 23:59 23:59 23:59 Intake Total 0 Output Total 62 40 0 Balance -62 -40 0 General: Other (Ashen, eyes closed, oral mucosa dry. Skin is thin, no motteling of arms or upper body.) HEENT: Other (Ashen, eyes closed, oral mucosa dry) Neck: No JVD Neuro: Other (Obtunded, but moans when moved, no spontaneous movements) Respiratory: Other (Whas a wet cough) - Results Results: Laboratory Results WBC 7.3 x10^3/uL (4.8-10.8) 05/13/20 04:25 RBC 4.45 10^6/uL (4.20-5.40) 05/13/20 04:25 Hgb 13.8 g/dL (12.0-16.0) 05/13/20 04:25 Hct 43.0 % (37.0-47.0) 05/13/20 04:25 MCV 96.6 fL (81.0-99.0) 05/13/20 04:25 MCH 31.0 pg (27.0-31.0) 05/13/20 04:25 MCHC 32.1 g/dL (32.0-36.0) 05/13/20 04:25 RDW 14.8 % (12.0-15.0) 05/13/20 04:25 Plt Count 311 10^3/uL (130-450) 05/13/20 04:25 MPV 10.5 fL (7.9-10.8) 05/13/20 04:25 Neut # (Auto) 4.8 10^3/uL (1.5-6.6) 05/13/20 04:25 Lymph # (Auto) 1.4 10^3/uL (1.5-3.5) L 05/13/20 04:25 [place] # (Auto) 0.7 10^3/uL (0.0-1.0) 05/13/20 04:25 Eos # (Auto) 0.2 10^3/uL (0.0-0.7) 05/13/20 04:25 Baso # (Auto) 0.1 10^3/uL (0.0-0.1) 05/13/20 04:25 Absolute Nucleated RBC 0.00 x10^3/uL 05/13/20 04:25 Nucleated RBC % 0.0 /100WBC 05/13/20 04:25 Sodium 139 mmol/L (135-145) 05/13/20 04:25 Potassium 4.1 mmol/L (3.5-5.0) 05/14/20 09:15 Chloride 106 mmol/L (101-111) 05/13/20 04:25 Carbon Dioxide 26 mmol/L (21-32) 05/13/20 04:25 Anion Gap 7.0 (6-13) 05/13/20 04:25 BUN 7 mg/dL (6-20) 05/13/20 04:25 Creatinine 0.4 mg/dL (0.4-1.0) 05/13/20 04:25 Estimated GFR (MDRD) 151 (>89) 05/13/20 04:25 Glucose 106 mg/dL (70-100) H 05/13/20 04:25 Calcium 8.8 mg/dL (8.5-10.3) 05/13/20 04:25 Total Bilirubin 1.6 mg/dL (0.2-1.0) H 05/11/20 19:15 AST 25 IU/L (10-42) 05/11/20 19:15 ALT 21 IU/L (10-60) 05/11/20 19:15 Alkaline Phosphatase 85 IU/L (42-121) 05/11/20 19:15 Troponin I High Sens 31.8 ng/L (2.3-14.8) H* 05/12/20 15:10 B-Natriuretic Peptide 195 pg/mL (5-100) H 05/12/20 09:27 Total Protein 6.1 g/dL (6.7-8.2) L 05/11/20 19:15 Albumin 3.7 g/dL (3.2-5.5) 05/11/20 19:15 Globulin 2.4 g/dL (2.1-4.2) 05/11/20 19:15 Albumin/Globulin Ratio 1.5 (1.0-2.2) 05/11/20 19:15 Lipase 21 U/L (22-51) L 05/11/20 19:15 Urine Color YELLOW 05/11/20 20:44 Urine Clarity CLEAR (CLEAR) 05/11/20 20:44 Urine pH 6.0 PH (5.0-7.5) 05/11/20 20:44 Ur Specific [place] >=1.030 (1.002-1.030) H 05/11/20 20:44 Urine Protein NEGATIVE mg/dL (NEGATIVE) 05/11/20 20:44 Urine Glucose (UA) NEGATIVE mg/dL (NEGATIVE) 05/11/20 20:44 Urine Ketones >=80 mg/dL (NEGATIVE) H 05/11/20 20:44 Urine Occult Blood NEGATIVE (NEGATIVE) 05/11/20 20:44 Urine Nitrite NEGATIVE (NEGATIVE) 05/11/20 20:44 Urine Bilirubin NEGATIVE (NEGATIVE) 05/11/20 20:44 Urine Urobilinogen 2 E.U./dL (NORMAL) H 05/11/20 20:44 Ur Leukocyte Esterase NEGATIVE (NEGATIVE) 05/11/20 20:44 Ur Microscopic Review NOT INDICATED 05/11/20 20:44 Urine Culture Comments NOT INDICATED 05/11/20 20:44 Nasal Adenovirus (PCR) NOT DETECTED 05/12/20 07:30 Nasal B. parapertussis DNA (PCR) NOT DETECTED 05/12/20 07:30 Nasal Coronavir 229E PCR NOT DETECTED 05/12/20 07:30 Nasal Coronavir HKU1 PCR NOT DETECTED 05/12/20 07:30 Nasal Coronavir NL63 PCR NOT DETECTED 05/12/20 07:30 Nasal Coronavir OC43 PCR NOT DETECTED 05/12/20 07:30 Nasal Enterovir/Rhinovir PCR NOT DETECTED 05/12/20 07:30 Nasal Influenza B PCR NOT DETECTED 05/12/20 07:30 Nasal Influenza A PCR NOT DETECTED 05/12/20 07:30 Nasal Parainfluen 1 PCR NOT DETECTED 05/12/20 07:30 Nasal Parainfluen 2 PCR NOT DETECTED 05/12/20 07:30 Nasal Parainfluen 3 PCR NOT DETECTED 05/12/20 07:30 Nasal Parainfluen 4 PCR NOT DETECTED 05/12/20 07:30 Nasal RSV (PCR) NOT DETECTED 05/12/20 07:30 Nasal B.pertussis DNA PCR NOT DETECTED 05/12/20 07:30 Nasal C.pneumoniae (PCR) NOT DETECTED 05/12/20 07:30 Addi Human Metapneumo PCR NOT DETECTED 05/12/20 07:30 Nasal M.pneumoniae (PCR) NOT DETECTED 05/12/20 07:30 Nasal SARS-CoV-2 (PCR) NOT DETECTED 05/12/20 07:30 Sepsis Event Note (H) - Evaluation Current Stage of Sepsis: Ruled out
[2020-05-20] MEDS ORDERED: MIN OIL/DIMETHICON/COCONUT OIL 92 GM TUBE TOP PRN (10:40)
[2020-05-20] MEDS ORDERED: CARBOXYMETHYLCELLULOSE OPHTH DROPS EACHEYE PRN (10:43)
[2020-05-20] MEDS ORDERED: SCOPOLAMINE PATCH TOP SCH (11:00)
--- NOTE | 2020-05-20 21:01 | Discharge Plan ---
Discharge Plan Problem Reviewed?: Yes Disposition: 20 No Smoking: If you smoke, Please STOP! Call for help. Follow-up with: Veronica Kennedy ARNP [Primary Care Provider] -
--- NOTE | 2020-05-20 21:06 | DISCHARGE SUMMARY ---
"Discharge Summary Admit Date: 05/12/20 Discharge Date: 05/20/20 Discharging Provider: Angelo Mckeon Primary Care Provider: Veronica Kennedy Code Status: Do Not Attempt Resuscitation Discharge Disposition: 20 - DIAGNOSES Admission Diagnoses: Pulmonary emboli Compression fracture, lumbar spine Advanced dementia Failure to thrive History of breast cancer Anorexia Discharge Diagnoses with Status of Each Condition: Acute saddle pulmonary embolism Need for comfort care Compression fracture, lumbar spine Failure to thrive Advanced dementia - HPI History of Present Illness: H&P per FRANK Delacruz on 05/12/20: This is a [id number] female with a past medical history significant for advanced dementia, frequent falls, COPD, Polyps, breast cancer, chronic back pain, osteoarthritis Who present to ER for evaluation of severe back pain, falls and later hypoxia. Patient has a history advanced dementia with confused, She could not provide any medical history. Her daughter is in her bedside, she help provide medical history. Daughter report Her mother recently had rest care to [facility]. In [facility], patient continues complain severe back pain, repeat falls, recently she had 6 falls in the [facility]. Also patient recently has loss of appetite and she does not want to eating, And presented hallucination as well. Pt has been unable to stand or ambulate due to severe pain. She is bed- bound now. When Patient was in the ER waiting social work for her replacement, Patient developed hypoxia. She has required oxygen supplement to support her O2 sats. CT of lumbar spinal show patient had progressively compression deformity at L1, one of etiology be pathological fracture, pt had hx of breast cancer. MRI of the spine can help clarify the etiology but pt's daughter declined the service because of pt's past terrified Claustrophobia. CTA of chest show A large right side pulmonary embolus and moderate left side pulmonary emboli, CT evidence of right heart strain, 1.6cm upper lobe subsolid nodule. Patient's d matiriley declined patient be transferred to higher level care because of pt's evidence of right heart strain at ER. I also discussed the care plan with the patient's daughter at bedside. she would like to focus on pt's pain control, comfortable care, continue to treat her mother's PE with blood thinner on today. She will discuss with her brother, and will likely choose hospice care for her mother on tomorrow. Her daughter confirm Pt's code status is DNR/DNI - CONSULTS | PROCEDURES Consultations: Hospice - HOSPITAL COURSE Hospital Course: She was admitted for acute bilateral pulmonary embolism and was started on L ovenox for anticoagulation. Her BNP and troponin were only mildly elevated. Imaging did suggest right heart strain but an echocardiogram was not obtained as family did not want transfer to higher level of care or any aggressive measures regarding treatment. The family wanted to see how she did over the first 24 hours before considering transferring to comfort measures only given she has advanced dementia and has been failing to thrive over the past few weeks with poor nutrition and multiple falls. Despite being hemodynamically stable the first 24 hours, the patient's daughter after discussion with her brother decided to transition the patient to comfort measures only. The Lovenox was di scontinued and the plan was to discharge home on hospice. Hospice was consulted and they evaluated the patient and were in agreement with this plan. Unfortunately this occurred over the weekend and so she remained hospitalized with the plan to discharge home the following Saturday. When Saturday arrived, it was felt that the patient was imminently dying and transfer to home would not be appropriate given her current condition. She remained in the hospital with a focus on comfort. She was treated with IV morphine initially and transition to just oral morphine, Haldol, Ativan as she lost her IV access. She on May 20 at 20:46. The patient's daughter was present at bedside and all of her questions were answered. - ALLERGIES Allergies/Adverse Reactions: Allergies Allergy/AdvReac Type Severity Reaction Status Date / Time acetaminophen Allergy Unknown Verified 05/11/20 18:35 [From Darvocet-N] cephalexin monohydrate * Allergy Unknown Verified 05/11/20 18:35 [From Keflex] diazepam Allergy Unknown Verified 05/11/20 18:35 erythromycin base Allergy Unknown Verified 05/11/20 18:35 levofloxacin [From Levaquin] Allergy Unknown Verified 05/12/20 11:00 Penicillins Allergy Unknown Verified 05/11/20 18:35 petrolatum,white Allergy Unknown Verified 05/11/20 18:35 [From Petroleum Jelly] prednisone Allergy Unknown Verified 05/11/20 18:35 propoxyphene napsylate * Allergy Unknown Verified 05/11/20 18:35 [From Darvocet-N] Sulfa (Sulfonamide Allergy Unknown Verified 05/11/20 18:35 Antibiotics) suture Allergy Unknown Verified 05/13/20 12:23 - MEDICATIONS Home Medications: Ambulatory Orders Medication Instructions Recorded Confirmed Acetaminophen [Tylenol] 325 mg PO BID 05/11/20 05/11/20 Cholecalciferol (Vitamin D3) 50 mcg PO DAILY 05/12/20 05/12/20 [Vitamin D3] Docusate Sodium 100Mg Capsule 100 mg PO BID 05/12/20 05/12/20 [Colace 100Mg Capsule] Escitalopram Oxalate 20 mg PO DAILY 05/12/20 05/12/20 Multivitamin 1 tab PO DAILY 05/12/20 05/12/20 Senna [Senokot] 8.6 mg PO BID PRN 05/12/20 05/12/20 oxyCODONE [Roxicodone] 5 mg PO Q6H PRN 05/12/20 05/12/20 - PHYSICAL EXAM AT DISCHARGE Eyes Bilateral: positive: Other (Pupils fixed and dilated.) Respiratory: positive: Other (No respirations.) Cardiovascular: positive: Other (Absent heart sounds.) Peripheral Pulses: positive: 0 - LABS Result Diagrams: 05/13/20 04:25 05/14/20 09:15 - SEPSIS Current Stage of Sepsis: Ruled out"
--- OUTSIDE RECORDS SUMMARY | 2020-05-31 11:56 | EXTERNAL MEDICAL SUMMARY RPT | Continuity of Care Document ---
:1930 Demographics Phone Unavailable Preferred Language Unknown Marital Status Unknown Holiness Affiliation Unknown Race Unknown Ethnic Group Unknown Author Organization [facility] Address [address] [phone] Phone Social History date description facility [id number]
== END 2020-05-20 20:46 | disposition expired | DRG 176 ==
LOC: EDUNIT# → ED 18:25 → SUPCPDRO 18:25 → MS2 05-12 10:35
PROVIDERS: ADMIT Nurse Practitioner Gerontology; ATTEND Internal Medicine
DX: I26.99 Other pulmonary embolism without acute cor pulmonale (principal); I26.92 Saddle embolus of pulmonary artery without acute cor pulmonale; M48.56XG Collapsed vertebra, not elsewhere classified, lumbar region, subsequent encounter for fracture with delayed healing; R44.3 Hallucinations, unspecified; R41.82 Altered mental status, unspecified; R62.7 Adult failure to thrive; Z91.81 History of falling; F03.90 Unspecified dementia, unspecified severity, without behavioral disturbance, psychotic disturbance, mood disturbance, and anxiety; Z85.3 Personal history of malignant neoplasm of breast; R09.02 Hypoxemia; Z20.822 Contact with and (suspected) exposure to COVID-19; R63.0 Anorexia; I51.9 Heart disease, unspecified; R91.1 Solitary pulmonary nodule; Z51.5 Encounter for palliative care; J44.9 Chronic obstructive pulmonary disease, unspecified; Z66 Do not resuscitate; Z87.891 Personal history of nicotine dependence; M48.56XS Collapsed vertebra, not elsewhere classified, lumbar region, sequela of fracture; M54.9 Dorsalgia, unspecified; Z74.01 Bed confinement status; R45.1 Restlessness and agitation
CPT/HCPCS: 36415; 70450; 71275; 72125; 72128; 72131; 74022; 80048; 80053; 81003; 83690; 83880; 84132; 84484; 85025; 87631; 93005; 96372; 99285; A6250; A9270; J1170; J1650; J2060; J3490; J8499; Q9967; 0202U; 81001; 87086